=== PATIENT | male | born 1955 | race Caucasian/White ===

== ENCOUNTER 2024-06-11 06:23 | Day surgery (SDC) | payer MEDICARE, OTHER, SELFPAY ==
[2024-06-11] VITALS (15 sets, daily range): BP systolic 92–139; BP diastolic 55–75; BMI 24.1
[2024-06-11 08:30] LABS: ACT-LR - POC 208 Seconds (116-155)
[2024-06-11 08:38] LABS: ACT-LR - POC 269 Seconds (116-155)
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
[2024-06-11] MEDS: NSS 1000 IV (09:11)
[2024-06-11] MEDS: PLAVIX 300 MG PO (10:32)
== END 2024-06-11 13:15 | disposition home or self-care (01) ==
LOC: CATH 06:23
PROVIDERS: ATTENDING PHYSICIAN Internal Medicine Interventional Cardiology; OTHER PHYSICIAN Nuclear Medicine Nuclear Cardiology
DX: I25.10 Atherosclerotic heart disease of native coronary artery without angina pectoris (principal); I25.84 Coronary atherosclerosis due to calcified coronary lesion; R07.89 Other chest pain; R00.1 Bradycardia, unspecified; I95.9 Hypotension, unspecified; Z79.82 Long term (current) use of aspirin; Z79.02 Long term (current) use of antithrombotics/antiplatelets; Z79.899 Other long term (current) drug therapy
CPT/HCPCS: 93458; 93571; 93572; C1769; C1894; Q9967

== ENCOUNTER → 2024-06-16 14:48 | Outpatient (REF) | payer MEDICARE, OTHER, SELFPAY | LOC: HWRAD 14:48 | PROVIDERS: ATTENDING PHYSICIAN Thoracic Surgery (Cardiothoracic Vascular Surgery) | DX: I25.10 Atherosclerotic heart disease of native coronary artery without angina pectoris (principal) | CPT/HCPCS: 71250 ==

== ENCOUNTER → 2024-06-17 10:01 | Outpatient (REF) | payer MEDICARE, OTHER, SELFPAY | LOC: RCS 10:01 | PROVIDERS: ATTENDING PHYSICIAN Thoracic Surgery (Cardiothoracic Vascular Surgery); OTHER PHYSICIAN Nuclear Medicine Nuclear Cardiology | DX: Z01.810 Encounter for preprocedural cardiovascular examination (principal); I25.110 Atherosclerotic heart disease of native coronary artery with unstable angina pectoris | CPT/HCPCS: 93306 ==

== ENCOUNTER 2024-06-23 07:22 | Inpatient (IN) | payer MEDICARE, OTHER, SELFPAY ==
[2024-06-17 11:39] VITALS: BMI 23.9
[2024-06-17 12:21] LABS: Urine Albumin Negative (Neg - Trace); Urine Bilirubin Negative (Negative); Urine Character Clear (Clear); Urine Color Yellow; Urine Glucose Negative (Negative); Urine Ketone Negative (Negative); Urine Leukocyte Negative (Negative); Urine Nitrite Negative (Negative); Urine Occult Blood Negative (Negative); Urine Specific Gravity 1.015 (<1.030); Urine Urobilinogen Negative (Neg - 1+)
[2024-06-17 12:30] LABS: % Basophils 1.1 % (0-2); % Eosinophils 7.3 % (0-6); % Immature Granulocytes 0.3 % (0-0.5); % Lymphocytes 29.9 % (20.5-51.1); % Monocytes 9.1 % (1.7-9.3); % Neutrophils 52.3 % (42.2-75.2); Absolute Basophils 0.1 10^3/uL (0-0.2); Absolute Eosinophils 0.6 10^3/uL (0-0.7); Absolute Lymphocytes 2.2 10^3/uL (1.2-3.4); Absolute Monocytes 0.7 10^3/uL (0.1-0.6); Absolute Neutrophils 3.9 10^3/uL (1.4-6.5); Hematocrit 45.8 % (39.0-52.0); Hemoglobin 15.9 g/dL (13.0-18.0); Mean Corp Hgb Conc. 34.7 g/dL (33.0-37.0); Mean Corpuscular Hgb 29.8 pg (27.0-31.0); Mean Corpuscular Volume 85.8 fL (80.0-94.0); Mean Platelet Volume 10.5 fL (7.4-10.4); Nucleated Red Blood Cells % 0 % (-); Platelet Count 237 10^3/uL (130-400); Red Blood Cell Count 5.34 10^6/uL (4.70-6.10); Red Cell Dist. Width 12.3 % (11.5-14.5); White Blood Cell Count 7.5 10^3/uL (4.8-10.8)
[2024-06-17 12:32] LABS: APTT 31.1 Sec (23.4-35.0); INR 1.16; PT 14.9 Sec (11.4-14.6)
[2024-06-17 12:57] LABS: ALT (SGPT) 28 U/L (0-50); AST (SGOT) 28 U/L (17-59); Albumin 4.5 g/dl (3.5-5.0); Alkaline Phosphatase 64 U/L (38-126); Blood Urea Nitrogen 21 mg/dl (9-20); Calcium 9.4 mg/dl (8.4-10.2); Carbon Dioxide 32 mmol/L (22-30); Chloride 101 mmol/L (98-107); Direct Bilirubin 0.1 mg/dl (0.0-0.4); Estimated Creatinine Clearance 76 ml/min; Glucose 121 mg/dl (70-99); Potassium 4.7 mmol/L (3.5-5.1); Sodium 141 mmol/L (135-145); Total Bilirubin 1.1 mg/dl (0.2-1.3); eGFR > 60.00
[2024-06-17 13:52] LABS: Glycohemoglobin (HgbA1c) 5.5 % (4.0-5.6)
--- NOTE | 2024-06-17 14:23 | CM ---
CM following for DC planning needs.
Met w/ patient during PATs for planned CABG 06/23.
Patient resides w/ spouse in a private, 1 story home w/ 2 [place] in a [place] community. Pt. is very independent at baseline; mountain bikes regularly/ competes. Patient works full-time from home.
There is no DME in the home.
Reviewed pre and post op routines.
Soap, shower instructions and CABG booklet provided.
Reviewed post op restrictions to include lifting, driving, flying and sternal precautions.
Plan is CABG 06/23
Anticipated DC plan is for home once medically stable. [facility] RN is out of geographical area; patient wants to return to [place] office to remove sutures v have them removed here prior to DC. Will discuss w/ CT-PA/PARTS SALES MANAGER.
Will follow.
[2024-06-23] VITALS (10 sets, daily range): BP systolic 94–127; BP diastolic 58–93; BMI 23.4
[2024-06-23] MEDS: BACTROBAN 2% OINTMENT 1 APPLIC NASAL ×2 (08:02→19:51)
[2024-06-23] MEDS: PROTONIX 40 MG PO (08:02)
[2024-06-23] MEDS: MAGNESIUM OXIDE 500 MG PO (08:02)
--- NOTE | 2024-06-23 08:31 | PTCARENOTE ---
Pt arrived to room DOS with . VSS, HR 40's and CT [facility] notified, metoprolol to be held pre op. # 20 INT placed RT arm. ABO obtained and sent to lab. Surgical clip and prep preformed. Questions answered.
--- NOTE | 2024-06-23 09:16 | CM ---
Reviewed chart. Mr. Lazaro is in the operating room today. Prior to admission he resides with his spouse in a one story home with two steps to enter. Prior to admission he was independent with ambulation and adls. He does not have any DME in the
home. Medial work-up in progress. The discharge plan is to return home with his spouse when medically stable.
--- NOTE | 2024-06-23 12:14 | W.CVOR.SURPR ---
CVOR Surgeon Immed Pre Op
-
I have examined this patient prior to performance of the scheduled procedure.
The patient's condition is unchanged from the time of the dictated/written History and
Physical and the patient is able to undergo the scheduled procedure.
CABG + JAMES Clip and sternal fixation
--- NOTE | 2024-06-23 12:30 | PTCARENOTE ---
Pt transported to [facility] in bed, updated over phone.
[2024-06-23 12:58] LABS: ACT+ - POC 98 Seconds (82-134)
[2024-06-23 14:39] LABS: Urine Albumin Negative (Neg - Trace); Urine Bilirubin Negative (Negative); Urine Character Clear (Clear); Urine Color Yellow; Urine Glucose Negative (Negative); Urine Ketone Trace (Negative); Urine Leukocyte Negative (Negative); Urine Nitrite Negative (Negative); Urine Occult Blood Negative (Negative); Urine Urobilinogen Negative (Neg - 1+)
[2024-06-23 15:18] LABS: B.E. - POC -0.5 mmol/L; Glucose - POC 92 mg/dl (70-99); HCO3 - POC 24 mmol/L (21-29); Hematocrit - POC 42 % PCV (42-52); Hemodilution- POC Yes; Hemoglobin Calculated - POC 14.2; Ionized Calcium - POC 1.18 mmol/L (1.12-1.27); PCO2 - POC 39 mmHg (35-45); PO2 - POC 442 mmHg (80-100); POC Comment PRE; Sodium - POC 143 mmol/L (135-145)
[2024-06-23 15:28] LABS: ACT+ - POC > 1003 Seconds (82-134)
[2024-06-23 15:46] LABS: ACT+ - POC > 1003 Seconds (82-134)
[2024-06-23 15:49] LABS: B.E. - POC 3.1 mmol/L; Glucose - POC 108 mg/dl (70-99); HCO3 - POC 28 mmol/L (21-29); Hematocrit - POC 31 % PCV (42-52); Hemodilution- POC Yes; Hemoglobin Calculated - POC 10.5; Ionized Calcium - POC 0.99 mmol/L (1.12-1.27); O2 Saturation %Calculated-POC 99.9 5 (92-96); PCO2 - POC 44 mmHg (35-45); PO2 - POC 263 mmHg (80-100); POC Comment CPB; Potassium - POC 4.9 mmol/L (3.6-5.0); Sodium - POC 139 mmol/L (135-145); pH - POC 7.42 (7.35-7.45)
[2024-06-23 16:16] LABS: B.E. - POC 1.5 mmol/L; Glucose - POC 129 mg/dl (70-99); HCO3 - POC 26 mmol/L (21-29); Hematocrit - POC 34 % PCV (42-52); Hemodilution- POC Yes; Hemoglobin Calculated - POC 11.4; Ionized Calcium - POC 1.01 mmol/L (1.12-1.27); PCO2 - POC 38 mmHg (35-45); PO2 - POC 129 mmHg (80-100); POC Comment CPB; Potassium - POC 5.2 mmol/L (3.6-5.0); Sodium - POC 138 mmol/L (135-145); pH - POC 7.43 (7.35-7.45)
[2024-06-23 16:28] LABS: Glucose - POC 139 mg/dl (70-99); HCO3 - POC 26 mmol/L (21-29); Hematocrit - POC 34 % PCV (42-52); Hemodilution- POC Yes; Hemoglobin Calculated - POC 11.5; Ionized Calcium - POC 1.04 mmol/L (1.12-1.27); O2 Saturation %Calculated-POC 99.5 5 (92-96); PCO2 - POC 44 mmHg (35-45); PO2 - POC 167 mmHg (80-100); POC Comment CPB; Potassium - POC 5.2 mmol/L (3.6-5.0); Sodium - POC 138 mmol/L (135-145); pH - POC 7.37 (7.35-7.45)
[2024-06-23 16:47] LABS: B.E. - POC -1.5 mmol/L; Glucose - POC 129 mg/dl (70-99); HCO3 - POC 24 mmol/L (21-29); Hematocrit - POC 34 % PCV (42-52); Hemodilution- POC Yes; Hemoglobin Calculated - POC 11.6; Ionized Calcium - POC 1.02 mmol/L (1.12-1.27); O2 Saturation %Calculated-POC 99.9 5 (92-96); PCO2 - POC 40 mmHg (35-45); PO2 - POC 311 mmHg (80-100); POC Comment WARM; Potassium - POC 4.8 mmol/L (3.6-5.0); Sodium - POC 141 mmol/L (135-145); pH - POC 7.38 (7.35-7.45)
[2024-06-23 16:52] LABS: ACT+ - POC 118 Seconds (82-134)
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
--- NOTE | 2024-06-23 17:46 | CON.INTV ---
Consultation
Consultation Request
Date/Time Consultation Requested: 06/23
Date/Time Consultation Performed: 06/23
Reason for Consultation: Critical care
Medical History
-
History of Present Illness:
History obtained from the chart and reviewing outpatient records as patient is currently intubated/sedated. Patient is a 69-year-old male with history of recent non-ST elevation SC, requiring hospitalization May 2024. Was found to have
multivessel coronary disease per catheterization 06/11/2024. Patient was noted to have left main disease and for this reason underwent CABG 06/23. We are asked to help from a medical care standpoint.
Patient has been ordered platelets. Chest tube output minimal. Intermittent norepinephrine requirements noted. Currently on volume-cycled ventilation, adequate airway pressures
Postoperative EKG with incomplete right bundle branch.
.
PMH: Coronary disease multivessel status post non-ST elevation SC 06/05/2024. Hyperlipidemia. History of right collar bone surgery 2022, right ankle fracture
Past Medical History
Past Medical History: None (See above)
Past Surgical History: None (See above)
Social History
Tobacco: Non-smoker
Alcohol: None
Drug: None
Personal:
Living: With Family
Employment: Employed (Owns [employer])
Family History
Family History: Other (Father alive at 93, mother alive at 86. Father with coronary disease and bypass surgery. Brother with cardiomegaly, pacemaker.)
Allergies / Home Medications
Allergies
Allergy/AdvReac Type Severity Reaction Status Date / Time
No Known Allergies Allergy Verified 06/17/24 08:56
Home Medications
�Medication �Instructions �Recorded �Confirmed �Last Taken �Type
aspirin 81 mg chewable tablet 81 mg PO DAILY Blood Clot 06/11/24 06/23/24 06/22/24 08:00 History
Prevention/Tx
atorvastatin 80 mg tablet 80 mg PO HS High Cholesterol 06/11/24 06/23/24 06/21/24 20:00 History
metoprolol tartrate 25 mg tablet 25 mg PO BID Heart 06/11/24 06/23/24 06/22/24 20:00 History
Disease/Condition
nitroglycerin 0.4 mg sublingual 0.4 mg sublingual Q5M PRN chest 06/11/24 06/17/24 Unknown History
tablet pain
clopidogrel 75 mg tablet 75 mg PO NOON Blood Clot 06/17/24 06/23/24 06/17/24 12:00 History
Prevention/Tx
Review of Systems
-
Unable to Obtain full review of systems at this time due to: Patient Intubation
All other systems: Negative unless noted
Vitals / Labs / Diagnostic Testing
Vital Signs
Temp Pulse Resp Pulse Ox
98.0 F 44 18 100
06/23/24 07:48 06/23/24 08:03 06/23/24 07:48 06/23/24 07:48
Diagnostic Testing:
Physical Exam
-
HEENT: Normocephalic, Other (Bilateral lower extremity bandage, right IJ, left upper extremity) and Other (Chest incision intact)
Cardiovascular: S1/S2, Regular Rhythm and Murmur (n)
Respiratory: Wheeze (n), Rales (n), Rhonchi (n) and Non-Labored Respirations
GI: Soft and Non Distended
Neurology: Other (Sedated)
Skin: Good Color
General: Comfortable
Assessment
-
69-year-old male with history of coronary disease status post non-ST elevation SC 06/05/2024, with cardiac catheterization at that time revealing multivessel coronary disease and left main disease. Patient is status post bypass surgery 06/23/2024. We
are asked to help from critical care standpoint
S/p CABG 06/23/2024
Multivessel coronary disease, left main disease
Per C 06/11/2024
S/p NSTEMI 06/05/2024
Family history of heart disease
Hyperlipidemia
Right lower lobe pulmonary nodule, 5 mm
7.5 cm left kidney cyst
Plan/recommendations
At this time, patient remains critically ill but stable
Reviewed postoperative report
Chest tubes intact, no significant bleeding
Postoperative chest x-ray pending
Postoperative EKG incomplete right bundle branch
Intraoperative PUJA unremarkable. Preoperative echocardiogram normal
Moving forward
Continue with management per CT surgery
Anticipate extubation later today. Patient in excellent health, bikes 100 miles a week per report, does weights
Pressors as needed
Hemodynamic monitoring per CT surgery
Follow hemoglobin, follow blood sugars
Patient ordered platelets per CT surgery
Aspiration precautions, head of bed elevated once extubated
History of pulm nodule noted, [address] imaging right lower lobe
Consider follow-up CT chest in 1 year, depending on risk factors
Reviewed with critical care nursing
We will follow
TCCT 31 min
[2024-06-23 18:03] LABS: Glucose - Point of Care 84 mg/dl (70-99)
--- NOTE | 2024-06-23 18:06 | W.PN.UPDATE ---
Update Note
Progress Note Update
69y.o. male with NSTEMI 06/13/24 and left main/3VCAD was electively admitted 06/23 for CABG
IV fluids: 1200
U.O.:� 400
UF:� 1500
Blood:� 2 platelets
Wires:� bipolar V-wire
Gtts:� Levo @ 4, Insulin off, Precedex @ 0.6
�
NEURO: sedated on Precedex, pupils +2mm B/L
RESP: #8OT @23cm> 500/60%/14/5. Lungs clear B/L. 2 mediastinal (10cc on arrival) and L pleural (48cc on arrival) chest tubes to -20cm suction. Sanguineous drainage
CV: RRR +S1, S2, no S3, no�rub, no murmur. Dermabond to median sternotomy. RIJ w/[place] intact. CVP 3
ABD: round, soft, no BS
EXT: no edema, +2/4 DP pulses B/L, no femoral bruit, B/L LE TATIANA wrap intact; left radial A-line intact
: Connors with clear yellow urine
�
A/P: POD #0 s/p x 4 (GLOVER to LAD, SVG to diagonal & OM 3, SVG to RPDA); Left atrial appendage exclusion [#45 mm clip]. Rigid sternal fixation
PUJA: EF�55-60%
- wean and extubate
- platelets transfusing on admission to CVICU
# CAD
- will require resumption of ASA/Plavix, high intensity statin, beta radha
�
# acute surgical blood loss anemia-expected
- trend CBC
�
�
[2024-06-23 18:11] LABS: B.E. -0.5 mmol/L; HCO3 24.2 mmol/L (21-28); O2 Saturation % 99.7 % (94-98); PCO2 39 mmHg (35-48); PO2 327 mmHg (83-108); Potassium 3.4 mMOL/L (3.5-5.1); Sodium 138 mMOL/L (136-145)
[2024-06-23 18:20] LABS: APTT 32.7 Sec (23.4-35.0); Hemoglobin 12.8 g/dL (13.0-18.0); INR 1.65; PT 19.6 Sec (11.4-14.6); Platelet Count 187 10^3/uL (130-400)
[2024-06-23] MEDS: CALCIUM CHLORIDE 10% SYRINGE 50 MG IV (18:20)
[2024-06-23] MEDS: KCL 50 IV (18:20)
[2024-06-23] MEDS: CALCIUM CHLORIDE 10% SYRINGE 50 ML IV (18:20)
[2024-06-23] MEDS: ANCEF 10 IV ×2 (18:21)
[2024-06-23] MEDS: NEURONTIN PO ×2 (18:23→23:47)
[2024-06-23] MEDS: NSS 500 IV (18:23)
[2024-06-23 18:24] LABS: Blood Urea Nitrogen 20 mg/dl (9-20); Estimated Creatinine Clearance 95 ml/min; Glucose 85 mg/dl (70-99)
--- NOTE | 2024-06-23 18:24 | PTCARENOTE ---
Patient received from [facility]. PLTs infusing upon arrival, insulin gtt on standby from OR and repeat BG 84. Patient Patient NSR on monitor, epicardial wires on backup pacing VVI 30, heart tones regular, L radial josie transducing, leveled, recalibrated
and flushed. Patient on ventilator via anesthesia, satting 99% on 60% FiO2. CT x3 to -20 suction, no air leaks or crepitus appreciated. Hypoactive BS, mobley catheter in place draining clear yellow urine. Surgical sites CDI, allie wraps on B/L legs.
Pulses palpable, core temp 94.9-95.1, Jasvir hugger applied. Drips on arrival as follows: levophed and precedex. See work list for titration details.
[2024-06-23] MEDS: VERSED 0.5 MG IV (18:47)
[2024-06-23 19:00] LABS: Glucose - Point of Care 106 mg/dl (70-99)
[2024-06-23] MEDS: TYLENOL PO ×2 (19:07→23:47)
[2024-06-23] MEDS: DILAUDID 0.5 MG IV ×2 (19:10→22:35)
[2024-06-23] MEDS: SENOKOT-S PO (19:51)
[2024-06-23 20:00] LABS: Glucose - Point of Care 138 mg/dl (70-99)
--- NOTE | 2024-06-23 20:30 | PTCARENOTE ---
Patient received Intubated/Ventilator. #8.0 ETT 25cm Right lip. SIMV Settings - Rate 12 TV 550 PS 5 PEEP 5 FiO2 40%. FiO2 98%. Patient opens eyes to verbal commands. Pupils equal in size and reaction. Patient able to nod head appropriately
to simple verbal commands. Patient able to move all extremities without difficulty. No s/s of respiratory distress. Three chest tubes - Mediastinal x2 and Left Pleural - Intact and patent - 10-40ml red drainage - No air leak, tidaling or crepitus
noted. Chest tube dressing intact. Sinus Rhythm. Heart rate 80's. CVP 10. Left radial arterial line intact - Pressure bag/Saline flush. Right I.J. Cordis with [place] catheter. Levophed gtt at 2 mcq/min (7.5 ml/hr). Precedex gtt at 0.4
mcq/kg/min (7.5 ml/hr). Abdomen soft, nontender. Hypoactive bowel sounds in all four quads. No BM. No c/o nausea. No vomiting. Connors catheter - Temperature sensing - Yellow, clear urine - Output as documented. Jasvir hugger removed. 98.0 F
core temperature. IV Dilaudid for pain management. Sternal incision intact - Surgical adhesive - Open to air. Right groin dressing intact. Right leg incision intact - Surgical adhesive - [place] Wrap. Left leg incision intact - Surgical
adhesive - [place] Wrap. Positive, palpable pulses. Patient with no c/o back or flank pain. Assessment as documented.
[2024-06-23 21:19] LABS: Glucose - Point of Care 132 mg/dl (70-99)
[2024-06-23] MEDS: CALCIUM CHLORIDE 10% SYRINGE 60 MG IV (21:20)
[2024-06-23 22:07] LABS: HCO3 19.6 mmol/L (21-28); Ionized Calcium 1.33 mMOL/L (1.15-1.33); PCO2 31 mmHg (35-48); PO2 124 mmHg (83-108); Potassium 4.6 mMOL/L (3.5-5.1); pH 7.41 (7.35-7.45)
[2024-06-23 22:12] LABS: Hematocrit 37.3 % (39.0-52.0); Hemoglobin 13.6 g/dL (13.0-18.0); Platelet Count 290 10^3/uL (130-400)
[2024-06-23] MEDS: LR 250 ML IV (22:30)
[2024-06-23] MEDS: ZOFRAN 4 MG IV (22:49)
[2024-06-23] MEDS: SODIUM BICARBONATE 50 MEQ IV (23:00)
--- NOTE | 2024-06-23 23:00 | PTCARENOTE ---
CPAP wean. ABG and labs sent. Extubated at 2225 without difficulty. O2 at 6L via NC. SaO2 97%. Patient A+A+Ox3. No neurological deficits noted. Patient able to speak without difficulty. Voice quality clear. Calcium chloride 1,000mg/60ml IV
administered via Right I.J. Cordis per PA orders (Brock Garber PA-C). IV Dilaudid 0.5 mg IV given for pain management. Zofran 4mg IV given for c/o nausea. No vomiting or retching. Nausea resolved. 1 AMP Sodium Bicarb administered without
difficulty per PA order. LR bolus 250mg IV given. Patient tolerated a few ice chips. Assessment as documented.
[2024-06-23 23:18] LABS: Glucose - Point of Care 175 mg/dl (70-99)
[2024-06-23] MEDS: DILAUDID 0.25 MG IV (23:53)
[2024-06-24] VITALS (25 sets, daily range): BP systolic 80–124; BP diastolic 51–73; BMI 23.6
[2024-06-24] MEDS: LOW STRENGTH ASPIRIN 81 MG PO ×2 (00:03→11:02)
[2024-06-24] MEDS: LIPITOR 80 MG PO ×2 (00:03→21:36)
[2024-06-24 00:24] LABS: Glucose - Point of Care 154 mg/dl (70-99)
--- NOTE | 2024-06-24 00:30 | PTCARENOTE ---
Patient's blood glucose via accuchecks are greater than 140 mg/dL one hour apart - Glycemic Protocol started. No further changes from previous assessment.
[2024-06-24] MEDS: ANCEF 5 IV ×3 (00:54→15:50)
[2024-06-24] MEDS: NOVOLIN R INSULIN INFUSION 100 IV (01:04)
--- NOTE | 2024-06-24 01:04 | W.PN.CT ---
Today's Communication / Plan
-
Plan:
-No major issues overnight. Hemodynamically and neurologically intact
-Successfully extubated on 06/23/24 @ 2225
-Weaned off Levophed overnight, on insulin gtt per protocol
-U/O since OR 1375 mL
-Monitor chest tube output: 2med 160/250, Lpl 170/190
-Cont. current meds (ASA, Lipitor; will add Plavix; Amiodarone and Lopressor were held last night)
-D/C A-line/SLIC this AM @ 0445
-D/C Connors catheter @ 0600
-Transfer to [facility] phase when off insulin gtt
-K is 3.8, will replete
-Maintain cordis
-Maintain temporary pw (will pull in 1-2 days)
-Wean off of O2 as tolerated
-Encourage use of IS
-OOB into chair/Ambulate
Assessment / Plan
-
Assessment:
-S/p Standard sternotomy with aortic and right atrial cannulation/ CABG x 4 (In situ GLOVER to LAD, Ao to RSVG to diagonal sequential to OM 3, Ao to RSVG to RPDA)/Endoscopic vein harvesting of right lower extremity and additional exploration for vein
of the left lower extremity/Left atrial appendage exclusion [45 mm clip]/Rigid sternal fixation, by Dr. Cortés, 06/23/24, pod#1
-Multivessel CAD including 50% mid LM
-NSTEMI (0.196)
-USA
-LVEF 60-65% per intraop PUJA
-Trace to mild MR
-Hyperlipidemia
-Sinus bradycardia at baseline (45 bpm)
-Incomplete RBBB
-Hypotension at baseline
-Chronic back pain
-Chronic neck pain
-History of significant chest trauma with multiple fractured ribs on the right side and collarbone
-S/p R collar bone reconstruction
-S/P R ankle repair
-Acute postop blood loss/Anemia (stable without transfusion)
-Acute postop atelectasis
-Acute postop hypovolemia with subsequent hypervolemia
Discussed patient care with: Cardiology, Nursing, Respiratory Therapy, Pharmacy and Care Team
Subjective
Procedure
S/P Standard sternotomy with aortic and right atrial cannulation/ CABG x 4 (In situ GLOVER to LAD, Ao to RSVG to diagonal sequential to OM 3, Ao to RSVG to RPDA)/Endoscopic vein harvesting of right lower extremity and additional exploration for vein
of the left lower extremity/Left atrial appendage exclusion [45 mm clip]/Rigid sternal fixation, by Dr. Cortés, 06/23/24
-
Date of Service: June 24, 2024
Pt c/o incisional pain, had nausea and vomited last night, better this AM after Reglan
Objective Data
-
PT 19.6 Sec (11.4-14.6) H 06/23/24 18:01
INR 1.65 06/23/24 18:01
APTT 32.7 Sec (23.4-35.0) 06/23/24 18:01
Vital Signs
Vital Signs
Temp Pulse Resp BP Pulse Ox
97.0 F 96 17 115/69 100
06/24/24 00:15 06/24/24 00:15 06/24/24 00:15 06/24/24 00:15 06/24/24 00:15
CT Intake/Output/Weight
06/23/24 06/23/24 06/24/24
06:59 18:59 06:59
Intake Total 716.4 / 1182.5 466.1 / 1182.5
Output Total 615 / 1410 795 / 1410
Balance 101.4 / -227.5 -328.9 / -227.5
SaO2: 98 (RA)
Physical Exam
-
General: Awake, Oriented and AOx3
Cardiovascular: Regular rate & rhythm, No Murmurs, No Rub and No Gallop
Respiratory: Decreased Breath Sounds (at bases, otherwise clear)
Sternum: Stable
Incision: Clean, Dry, Intact and Dressing Intact
Extremities: No Edema
Data Reviewed
-
Lab Results: Results Reviewed
Medications: Active Meds Reviewed
Chest X-Ray: Report Reviewed and Image Reviewed
ECG: Report Reviewed and Image Reviewed
[2024-06-24 01:14] LABS: Glucose - Point of Care 167 mg/dl (70-99)
[2024-06-24] MEDS: REGLAN 10 MG IV ×2 (02:00→07:54)
[2024-06-24 02:12] LABS: Glucose - Point of Care 205 mg/dl (70-99)
[2024-06-24 03:20] LABS: Glucose - Point of Care 189 mg/dl (70-99)
[2024-06-24 03:39] LABS: Hemoglobin 11.8 g/dL (13.0-18.0); Mean Corp Hgb Conc. 36.9 g/dL (33.0-37.0); Mean Corpuscular Hgb 29.9 pg (27.0-31.0); Mean Platelet Volume 10.1 fL (7.4-10.4); Platelet Count 244 10^3/uL (130-400); Red Blood Cell Count 3.95 10^6/uL (4.70-6.10); Red Cell Dist. Width 12.1 % (11.5-14.5); White Blood Cell Count 17.7 10^3/uL (4.8-10.8)
[2024-06-24 03:50] LABS: INR 1.43; PT 17.5 Sec (11.4-14.6)
[2024-06-24 04:01] LABS: Glucose - Point of Care 184 mg/dl (70-99)
[2024-06-24 04:02] LABS: Blood Urea Nitrogen 26 mg/dl (9-20); Calcium 8.9 mg/dl (8.4-10.2); Carbon Dioxide 23 mmol/L (22-30); Chloride 108 mmol/L (98-107); Estimated Creatinine Clearance 85 ml/min; Glucose 193 mg/dl (70-99); Magnesium 2.1 mg/dl (1.6-2.3); Potassium 3.8 mmol/L (3.5-5.1); Sodium 143 mmol/L (135-145); eGFR > 60.00
[2024-06-24 05:05] LABS: Glucose - Point of Care 170 mg/dl (70-99)
[2024-06-24] MEDS: KCL 50 IV (06:00)
[2024-06-24] MEDS: TYLENOL PO ×5 (06:00→21:39)
[2024-06-24 06:16] LABS: Glucose - Point of Care 147 mg/dl (70-99)
--- NOTE | 2024-06-24 06:30 | PTCARENOTE ---
Patient A+A+Ox3. No neurological deficits noted. Occasional short episodes of nausea. No vomiting. Patient given CHG bath and linens changed. K 3.8. KCL 20 mEq IV over 1hr. Patient de-lined. Connors removed without difficulty at 0600 - Due to
void at 12pm. Assessment/Interventions as documented.
[2024-06-24] MEDS: ZOFRAN 4 MG IV (07:17)
--- NOTE | 2024-06-24 07:26 | W.PN.ANS.POP ---
Anesthesia Post Operative
- Anesthesia Post Op Note
Vital Signs Stable-See Nursing Note: Yes
Airway Patent: Yes
Adequate Pain Control: Yes
Change in Mental Status: No
Current Postoperative Nausea & Vomiting: Yes (pt receiving zofran)
Anesthesia Complications: No
General Anesthetic Recall: No
Unplanned Admission: No
Post Op Hydration Adequate: Yes
[2024-06-24 07:37] LABS: Glucose - Point of Care 128 mg/dl (70-99)
[2024-06-24 07:40] LABS: B.E. - POC -2.7 mmol/L; Glucose - POC 100 mg/dl (70-99); HCO3 - POC 23 mmol/L (21-29); Hematocrit - POC 33 % PCV (42-52); Hemodilution- POC Yes; Hemoglobin Calculated - POC 11.4; Ionized Calcium - POC 1.32 mmol/L (1.12-1.27); O2 Saturation %Calculated-POC 99.4 5 (92-96); PCO2 - POC 41 mmHg (35-45); PO2 - POC 168 mmHg (80-100); POC Comment POST; Potassium - POC 3.7 mmol/L (3.6-5.0); Sodium - POC 142 mmol/L (135-145); pH - POC 7.35 (7.35-7.45)
--- NOTE | 2024-06-24 07:57 | W.PN.INTV ---
Today's Communication / Plan
Recommendations
Chest tube management per CT surgery
Status post platelet transfusion, hemoglobin stable
Remains on insulin drip
Would recommend follow-up CT chest in 1 year for pulmonary nodule, May 2025
Pulmonary information left in chart
Once transferred to telemetry, we will sign off. Please call with questions
Assessment
-
69-year-old male with history of coronary disease status post non-ST elevation [place] 06/05/2024, with cardiac catheterization at that time revealing multivessel coronary disease and left main disease. Patient is status post bypass surgery 06/23/2024. We
are asked to help from critical care standpoint
S/p CABG 06/23/2024
Multivessel coronary disease, left main disease
Per C 06/11/2024
S/p NSTEMI 06/05/2024
Family history of heart disease
Hyperlipidemia
Right lower lobe pulmonary nodule, 5 mm
7.5 cm left kidney cyst
Plan/recommendations
At this time, patient remains critically ill but stable
Reviewed postoperative report
Chest tubes intact, no significant bleeding
Postoperative chest x-ray pending
Postoperative EKG incomplete right bundle branch
Intraoperative PUJA unremarkable. Preoperative echocardiogram normal
Moving forward
Continue with management per CT surgery
Pressors have been weaned off
Remains on insulin drip
Follow hemoglobin, follow blood sugars
Received 2 packs of platelets
History of pulm nodule noted, [address] imaging right lower lobe
I would consider follow-up CT chest in 1 year, depending on risk factors
Subjective Dataa
Subjective Data
Date of Service:
Date of Service: June 24, 2024
Subjective:
Patient is feeling well. Denies chest pain, shortness of breath. Mild nausea, now resolved
Objective Data
Data Reviewed
Vital Signs / I&O / Oxygen:
Vital Signs
Temp Pulse Resp BP Pulse Ox
97.7 F 75 22 103/72 97
06/24/24 04:00 06/24/24 07:30 06/24/24 05:45 06/24/24 06:10 06/24/24 07:00
Intake and Output
06/23/24 06/24/24 06/25/24
06:59 06:59 06:59
Intake Total 1574.5 / 1574.5
Output Total 1909
Balance -335.5 / -335.5
SaO2 [CPAP] 96
SaO2 [SIMV] 98
SaO2 97
Nasal Cannula flow liters per 2
minute
Physical Exam
General: Comfortable
HEENT: Normocephalic and Anicteric
Cardiovascular: S1-S2, Regular Rhythm and Murmur (n)
Respiratory: Wheeze (n), Crackles (n), Rhonchi (n) and Non-Labored Respirations
GI: Soft, Non Distended and Non Tender
Neurology: Awake, Alert and No Motor Deficits
Skin: Cyanosis (n), Jaundice (n) and Rash (n)
Labs/Micro/Reports
Lab Data
06/24/24 03:28
06/24/24 03:28
Laboratory Results
06/23/24 06/23/24 06/24/24
18:01 21:57 03:28
PT 19.6 H 17.5 H
INR 1.65 1.43
APTT 32.7
pH 7.40 7.41
pCO2 39 31 L
pO2 327 H 124 H
HCO3 24.2 19.6 L
O2 Delivery Level
[2024-06-24] MEDS: TORADOL 15 MG IV ×2 (08:10→13:55)
[2024-06-24] MEDS: LIDOCAINE 4% PATCH 1 PATCH TOPICAL ×2 (08:11→17:13)
[2024-06-24] MEDS: FEOSOL PO ×2 (08:14→09:57)
[2024-06-24] MEDS: PROTONIX PO (08:14)
[2024-06-24] MEDS: LOW STRENGTH ASPIRIN PO (08:15)
[2024-06-24] MEDS: NEURONTIN PO ×2 (08:15→09:56)
[2024-06-24] MEDS: LOPRESSOR PO (08:15)
[2024-06-24] MEDS: VITAMIN C PO ×2 (08:15→09:58)
[2024-06-24] MEDS: SENOKOT-S PO ×2 (08:15→09:56)
[2024-06-24] MEDS: PLAVIX PO (08:15)
[2024-06-24] MEDS: BACTROBAN 2% OINTMENT 1 APPLIC NASAL ×2 (08:17→19:23)
[2024-06-24 08:41] LABS: ACT+ - POC > 1003 Seconds (82-134)
[2024-06-24 08:41] LABS: ACT+ - POC > 1003 Seconds (82-134)
[2024-06-24] MEDS: COMPAZINE 5 MG IV (09:30)
[2024-06-24] MEDS: NSS IV (09:55)
[2024-06-24 10:13] LABS: Glucose - Point of Care 112 mg/dl (70-99)
--- NOTE | 2024-06-24 10:39 | PTCARENOTE ---
Patient received from environmental services project manager in bed, AAO X 3, c/o pain and nausea, medicated for such (see MAR). NSR via cm, SaO2 @ 97% on 2lnc. RIJ Cordis w/kvo infusing. Insulin infusing peripherally, titrating per glycemic protocol. Epicardial V-wire to
pulse generator, insulated as ordered. Mediastinal chest tubes x 2, Y-connected to one pleurevac, no air leak noted. L pleural chest tube to separate chamber, d/c'd as ordered, patient tolerated well. All procedural sites stable. Patient assisted
oob to chair, standing scale weight obtained. OOB for approx one hour, requested to be returned to bed. Patient educated on importance of remaining oob - will return to bed for brief nap. See work list for full assessment and interventions
performed.
[2024-06-24] MEDS: FLEXERIL 5 MG PO ×2 (11:01→19:21)
[2024-06-24 12:05] LABS: Glucose - Point of Care 136 mg/dl (70-99)
[2024-06-24] MEDS: LOPRESSOR 12.5 MG PO ×2 (12:07→19:21)
[2024-06-24] MEDS: PLAVIX 75 MG PO (12:07)
[2024-06-24] MEDS: PROTONIX 40 MG PO (12:07)
--- NOTE | 2024-06-24 12:13 | W.PN.CARDCBS ---
Addendum entered and electronically signed by Robert Josue MD 06/24/24 13:04:
I saw and examined the patient.
The Stucco Laborer's note was reviewed and I agree with the note.
Comment:
GEN: No distress, awake, Ox3
HEENT: supple, anicteric, mmm
LUNGS: CTA, no wheezes/rales
CV: Reg, S1/S2, no murmur
ABD: soft, BS+, NT/ND
EXT: No edema
NEURO: Gross non-focal
SKIN: sternotomy
Plan:
Overall doing well postop day 1. Off all pressors. Remains in sinus rhythm.
Hemoglobin at 11.8. Creatinine at 0.9.
Continue treatments for nausea.
Original Note:
Today's Communication / Plan
-
continue post op care
continue antiemetic regimen
Impression / Plan
-
Primary Reel Film Inspector: Dr. Josue
Assessment:
MV CAD s/p CABG x4 In situ GLOVER to LAD, Ao to RSVG to diagonal sequential to OM 3, Ao to RSVG to RPDA, JAMES clip, rigid sternal fixation 06/23/24
Post operative nausea
NSTEMI 06/05/24, initially treated at [facility]
HLD
Sinus bradycardia
Incomplete RBBB
Chronic back and neck pain
History of significant chest trauma with multiple fractured ribs on the right side and collarbone
FH of CAD
Echo 06/17/2024: EF 60 to 65%, no significant valvular abnormalities
Plan:
-Status post CABG x 4 In situ GLOVER to LAD, Ao to RSVG to diagonal sequential to OM 3, Ao to RSVG to RPDA, JAMES clip, rigid sternal fixation 06/23/24
-With significant postoperative nausea and fatigue this morning
-Continue postop care
-off pressors. BPs low but stable
-EKG SR
-continue asa, plavix. hgb 11.8
-d/w nursing
Progress Note - Reel Film Inspector
Subjective
Date of Service: June 24, 2024
with significant nausea and fatigue this morning
Objective
Labs:
06/24/24 03:28
06/24/24 03:28
Labs
Hgb 11.8 g/dL (13.0-18.0) L 06/24/24 03:28
Hct 32.0 % (39.0-52.0) L 06/24/24 03:28
Plt Count 244 10^3/uL (130-400) 06/24/24 03:28
PT 17.5 Sec (11.4-14.6) H 06/24/24 03:28
INR 1.43 06/24/24 03:28
APTT 32.7 Sec (23.4-35.0) 06/23/24 18:01
Sodium 143 mmol/L (135-145) 06/24/24 03:28
Potassium 3.8 mmol/L (3.5-5.1) 06/24/24 03:28
BUN 26 mg/dl (9-20) H 06/24/24 03:28
Creatinine 0.9 mg/dL (0.7-1.3) 06/24/24 03:28
Glucose 193 mg/dl (70-99) H 06/24/24 03:28
Vital Signs and I&O:
Vital Signs
Temp Pulse Resp BP Pulse Ox
97.9 F 76 16 102/57 95
06/24/24 12:10 06/24/24 12:10 06/24/24 12:10 06/24/24 12:07 06/24/24 12:10
Vital Signs
Temp Pulse Resp BP Pulse Ox
97.9 F 76 16 102/57 95
06/24/24 12:10 06/24/24 12:10 06/24/24 12:10 06/24/24 12:07 06/24/24 12:10
Intake & Output
06/22/24 06/23/24 06/24/24 06/25/24
07:59 07:59 07:59 07:59
Intake Total 1589.0 / 1603.0 41.5 / 41.5
Output Total 1929 / 1929 40 / 40
Balance -341.0 / -327.0 1.5 / 1.5
--- NOTE | 2024-06-24 13:41 | PTCARENOTE ---
VS, assessment unchanged, stable. Assisted oob for lunch, tolerated well. Voided to urinal w/out issue.
[2024-06-24] MEDS: FERRLECIT 110 MG IV (13:55)
[2024-06-24 14:00] LABS: Glucose - Point of Care 117 mg/dl (70-99)
[2024-06-24 15:50] LABS: Glucose - Point of Care 77 mg/dl (70-99)
[2024-06-24] MEDS: NEURONTIN 100 MG PO ×2 (15:50→21:37)
--- NOTE | 2024-06-24 16:09 | PTCARENOTE ---
VS obtained, assessment stable. Patient resting comfortably, pain much better controlled this afternoon. Nausea resolved.
[2024-06-24 17:18] LABS: Glucose - Point of Care 105 mg/dl (70-99)
[2024-06-24 18:24] LABS: Glucose - Point of Care 159 mg/dl (70-99)
[2024-06-24] MEDS: SENOKOT-S 1 TABLET PO (19:22)
--- NOTE | 2024-06-24 20:00 | PTCARENOTE ---
Received pt from [facility]. pt sitting comfortably in bed. pt is AAOx4. NSR on monitor. VSS. heart sounds audible, radial and DP pulses palpable, no edema noted, temp epicardial V-wires insulated. lung sounds diminished throughout, spo2 95% on RA, x2
MS CT to -20 wall suction, no air leaks, no tidaling no crepitus. hypoactive BS x4 quadrants, abdomen soft non tender, pt refused Senokot, education provided on importance of bowel regime post-op. pt voiding clear yellow urine without difficulty.
surgical sites maintained. right IJ cordis and PIV maintained. call soliman within reach. will continue to monitor.
[2024-06-25] VITALS (21 sets, daily range): BP systolic 79–129; BP diastolic 48–68; BMI 24.5; BMI 24.4
--- NOTE | 2024-06-25 | PTCARENOTE ---
Pt resting comfortably in be. BP is treading down, MAP remains > 65. CVPA aware. pt resting comfortably in be. NSR on monitor. VSS. call soliman within reach. will continue to monitor.
--- NOTE | 2024-06-25 04:00 | PTCARENOTE ---
pt assessment unchanged. NSR on monitor.VSS. call soliman within reach. will continue to monitor.
[2024-06-25 04:31] LABS: Hematocrit 27.1 % (39.0-52.0); Hemoglobin 9.8 g/dL (13.0-18.0); Mean Corp Hgb Conc. 36.2 g/dL (33.0-37.0); Mean Corpuscular Hgb 30.1 pg (27.0-31.0); Mean Corpuscular Volume 83.1 fL (80.0-94.0); Mean Platelet Volume 10.5 fL (7.4-10.4); Platelet Count 178 10^3/uL (130-400); Red Blood Cell Count 3.26 10^6/uL (4.70-6.10); Red Cell Dist. Width 12.6 % (11.5-14.5); White Blood Cell Count 17.2 10^3/uL (4.8-10.8)
[2024-06-25 04:48] LABS: Blood Urea Nitrogen 37 mg/dl (9-20); Calcium 8.4 mg/dl (8.4-10.2); Carbon Dioxide 27 mmol/L (22-30); Chloride 101 mmol/L (98-107); Estimated Creatinine Clearance 69 ml/min; Glucose 131 mg/dl (70-99); Magnesium 2.3 mg/dl (1.6-2.3); Potassium 4.7 mmol/L (3.5-5.1); Sodium 135 mmol/L (135-145); eGFR > 60.00
[2024-06-25] MEDS: TORADOL 15 MG IV ×2 (04:49→22:04)
--- NOTE | 2024-06-25 05:50 | W.PN.CT ---
Today's Communication / Plan
-
-pod #2
-nausea is better. Abd XRY on 06/24 was nonobstructive- follow
-review CXR
-CT output: 2 meds 100/230 in 12/24 hrs
-weaned off O2 - pOx 92-94% on RA
-minimize narcs d/t nausea, decreased flatus
-encourage OOB and IS
Assessment / Plan
-
Assessment:
-S/p Standard sternotomy with aortic and right atrial cannulation/ CABG x 4 (In situ GLOVER to LAD, Ao to RSVG to diagonal sequential to OM 3, Ao to RSVG to RPDA)/Endoscopic vein harvesting of right lower extremity and additional exploration for vein
of the left lower extremity/Left atrial appendage exclusion [45 mm clip]/Rigid sternal fixation, by Dr. Cortés, 06/23/24, pod#2
-Multivessel CAD including 50% mid LM
-NSTEMI (0.196)
-[place]
-LVEF 60-65% per intraop PUJA
-Trace to mild MR
-Hyperlipidemia
-Sinus bradycardia at baseline (45 bpm)
-Incomplete RBBB
-Hypotension at baseline
-Chronic back pain
-Chronic neck pain
-History of significant chest trauma with multiple fractured ribs on the right side and collarbone
-S/p R collar bone reconstruction
-S/P R ankle repair
-Acute postop blood loss/Anemia (stable without transfusion)
-Acute postop atelectasis/small L pleur effusion
-Acute postop hypovolemia with subsequent hypervolemia
Discussed patient care with: Nursing and Care Team
Subjective
Procedure
S/P Standard sternotomy with aortic and right atrial cannulation/ CABG x 4 (In situ GLOVER to LAD, Ao to RSVG to diagonal sequential to OM 3, Ao to RSVG to RPDA)/Endoscopic vein harvesting of right lower extremity and additional exploration for vein
of the left lower extremity/Left atrial appendage exclusion [45 mm clip]/Rigid sternal fixation, by Dr. Cortés, 06/23/24
-
Date of Service: June 25, 2024
Objective Data
-
Lab Results
06/25/24 04:11
06/25/24 04:11
PT 17.5 Sec (11.4-14.6) H 06/24/24 03:28
INR 1.43 06/24/24 03:28
APTT 32.7 Sec (23.4-35.0) 06/23/24 18:01
Vital Signs
Vital Signs
Temp Pulse Resp BP Pulse Ox
98.5 F 73 20 91/55 92
06/25/24 04:00 06/25/24 04:45 06/25/24 04:00 06/25/24 04:19 06/25/24 04:45
CT Intake/Output/Weight
06/24/24 06/24/24 06/25/24
06:59 18:59 06:59
Intake Total 858.1 / 1589.0 629.0 / 629.0
Output Total 1295 / 1930 455 / 855 400 / 855
Balance -436.9 / -341.0 174.0 / -226.0 -400 / -226.0
SaO2: 92
Physical Exam
-
General: Awake and AOx3
Cardiovascular: Regular rate & rhythm, No Murmurs and No Rub
Respiratory: Decreased Breath Sounds
Sternum: Stable
Incision: Clean, Dry and Dressing Intact
Extremities: No Edema (2+ DPs b/l)
Data Reviewed
-
Lab Results: Results Reviewed
Medications: Active Meds Reviewed
Chest X-Ray: Report Reviewed and Image Reviewed
ECG: Report Reviewed and Image Reviewed
[2024-06-25] MEDS: TYLENOL PO (06:18)
[2024-06-25] MEDS: LR 250 IV (06:45)
--- NOTE | 2024-06-25 06:48 | PTCARENOTE ---
Pt's continue to trend low. MAp has dropped below 65. Pt will remain in bed and received 250 LR bolus per CVPA. call soliman within reach. will continue to monitor.
[2024-06-25 07:40] LABS: Glucose - Point of Care 127 mg/dl (70-99)
--- NOTE | 2024-06-25 08:00 | PTCARENOTE ---
pt received from previous RN, oriented, in bed. SR on the monitor, HR 70s. V wire insulated. SBP 90s. palpable pulses. pt placed on 6LNC per MARINE CARGO SURVEYOR, 100% POX. lungs clear, diminished on R side. IS encouraged. CT x2, no air leak or crepitus noted. pt
abdomen s/n, denies n/v. diet tolerated well. +BS, +flatus. voids. sternal incision MOI. chest tube site c/d/i. R groin intact. R knee incision TRANSITIONAL STUDIES INSTRUCTOR. LLE incision MOI. RIJ cordis maintained. PIV. LR bolus running as ordered. see worklist for VS, I&O,
and assessment.
[2024-06-25] MEDS: LOPRESSOR PO (09:07)
[2024-06-25] MEDS: FEOSOL 325 MG PO (09:15)
[2024-06-25] MEDS: LOW STRENGTH ASPIRIN 81 MG PO (09:15)
[2024-06-25] MEDS: VITAMIN C 500 MG PO (09:15)
[2024-06-25] MEDS: PROTONIX 40 MG PO (09:15)
[2024-06-25] MEDS: SENOKOT-S 1 TABLET PO ×2 (09:15→21:08)
[2024-06-25] MEDS: LIDOCAINE 4% PATCH 1 PATCH TOPICAL ×2 (09:15→09:16)
[2024-06-25] MEDS: NEURONTIN 100 MG PO ×3 (09:15→21:08)
[2024-06-25] MEDS: BACTROBAN 2% OINTMENT 1 APPLIC NASAL ×2 (09:16→21:07)
[2024-06-25] MEDS: PLAVIX 75 MG PO (09:31)
--- NOTE | 2024-06-25 12:00 | PTCARENOTE ---
pt VSS, Mediastinal CTs dc'd as ordered. dressing c/d/i. CXR completed. OOB to chair w/ assist.
--- NOTE | 2024-06-25 12:00 | W.PN.CARDCBS ---
Addendum entered and electronically signed by Robert Josue MD 06/25/24 12:43:
I saw and examined the patient.
The Automobile Salesman's note was reviewed and I agree with the note.
Comment:
GEN: No distress, awake, Ox3
HEENT: supple, anicteric, mmm
LUNGS: scatt rhonchi
CV: Reg, S1/S2, 1/6 syst LSB, no gallop
ABD: soft, BS+, NT/ND
EXT: No edema
NEURO: Gross non-focal
SKIN: No rash
Plan:
Has a PTX today. Repeat CXR.
Cont Metoprolol, ASA, Plavix, Atorvastatin
In sinus. HG 9.8
Original Note:
Today's Communication / Plan
-
continue post op care
follow PTX
Impression / Plan
-
Primary Boxcar Weigher: Dr. Josue
Assessment:
MV CAD s/p CABG x4 In situ GLOVER to LAD, Ao to RSVG to diagonal sequential to OM 3, Ao to RSVG to RPDA, JAMES clip, rigid sternal fixation 06/23/24
Post operative nausea
NSTEMI 06/05/24, initially treated at [facility]
HLD
Sinus bradycardia
Incomplete RBBB
Chronic back and neck pain
History of significant chest trauma with multiple fractured ribs on the right side and collarbone
FH of CAD
Echo 06/17/2024: EF 60 to 65%, no significant valvular abnormalities
Plan:
-Status post CABG x 4 In situ GLOVER to LAD, Ao to RSVG to diagonal sequential to OM 3, Ao to RSVG to RPDA, JAMES clip, rigid sternal fixation 06/23/24
-nausea improved. abd xray without obstruction
-CXR with mod PTX. awaiting repeat CXR read. hopefully can continue conservative mgmt
-in SR on review of tele
-follow hgb, down to 9.8. continue asa, plavix
-OOB/IS
-d/w nursing, CT surgery team
Progress Note - Boxcar Weigher
Subjective
Date of Service: June 25, 2024
nausea improved. reports some SOB and 'gurgling' on R side
Objective
Labs:
06/25/24 04:11
06/25/24 04:11
Labs
Hgb 9.8 g/dL (13.0-18.0) L 06/25/24 04:11
Hct 27.1 % (39.0-52.0) L 06/25/24 04:11
Plt Count 178 10^3/uL (130-400) D 06/25/24 04:11
PT 17.5 Sec (11.4-14.6) H 06/24/24 03:28
INR 1.43 06/24/24 03:28
APTT 32.7 Sec (23.4-35.0) 06/23/24 18:01
Sodium 135 mmol/L (135-145) D 06/25/24 04:11
Potassium 4.7 mmol/L (3.5-5.1) 06/25/24 04:11
BUN 37 mg/dl (9-20) H 06/25/24 04:11
Creatinine 1.1 mg/dL (0.7-1.3) 06/25/24 04:11
Glucose 131 mg/dl (70-99) H 06/25/24 04:11
Vital Signs and I&O:
Vital Signs
Temp Pulse Resp BP Pulse Ox
98.4 F 86 18 95/66 99
06/25/24 11:57 06/25/24 11:53 06/25/24 11:57 06/25/24 11:53 06/25/24 11:57
Vital Signs
Temp Pulse Resp BP Pulse Ox
98.4 F 86 18 95/66 99
06/25/24 11:57 06/25/24 11:53 06/25/24 11:57 06/25/24 11:53 06/25/24 11:57
Intake & Output
06/23/24 06/24/24 06/25/24 06/26/24
07:59 07:59 07:59 07:59
Intake Total 1589.0 / 1603.0 874.5 / 874.5 50
Output Total 1929 / 1929 850 / 850
Balance -341.0 / -327.0 24.5 / 24.5
Physical Exam
Physical Exam
GEN: No distress, awake, alert, oriented x3. on supp O2
HEENT: supple, anicteric, mmm, eomi
LUNGS: Decreased BS R side, no wheeze
CV: Reg, S1/S2, no murmur
EXT: No cyanosis, clubbing, edema
NEURO: Gross non-focal
SKIN: Warm, pink, dry. No rash. Sternotomy incision c/d/i
[2024-06-25] MEDS: NSS 500 IV (14:56)
[2024-06-25] MEDS: FLEXERIL 5 MG PO (14:56)
[2024-06-25] MEDS: FERRLECIT 110 MG IV (14:56)
[2024-06-25] MEDS: TYLENOL 1000 MG PO ×2 (15:00→21:08)
--- NOTE | 2024-06-25 15:18 | CM ---
Reviewed chart. Met with Mr. Lazaro to review discharge plans. He states he is feeling well. He states prior to admission he resides with spouse in a one story home with two steps to enter. He states prior to admission he was independent with
ambulation and adls. He does not have any DME in the home. We reviewed [facility] but he would prefer not to have VNA Services if possible. He he agreeable to having the Cardiothoracic Transitional Care Nurse telephone call. He states he will
go to [facility] for Cardiac Rehab. because it is close to his home. He has a prescription plan. Medical work-up in progress. The discharge plan is to return home with his spouse when medically stable.
--- NOTE | 2024-06-25 15:30 | PTCARENOTE ---
pt VSS, no changes in asssessment. Flexeril PRN given for pain.
[2024-06-25 18:46] LABS: Hepatitis C Antibody Negative (Negative)
--- NOTE | 2024-06-25 19:47 | PTCARENOTE ---
assumed care of pt from day shift nurse. pt AAOx3, NSR per tele, v wire insulated, palpable pulses, pox 97-100% 6L NC, lungs clear diminished on R side, IS encouraged, pt tolerated ambulating in hallway, +BS, voids, all surgical sites intact, CT
site c/d/i, PIV intact, RIJ cordis infusing KVO, call soliman within reach, bed locked
[2024-06-25] MEDS: LIPITOR 80 MG PO (21:07)
[2024-06-25] MEDS: LOPRESSOR 12.5 MG PO (21:08)
--- NOTE | 2024-06-25 22:10 | PTCARENOTE ---
pt complaining of increased pain to a 7, Toradol ordered by PA and given
[2024-06-26] VITALS (31 sets, daily range): BP systolic 79–125; BP diastolic 50–81; PULSE 75; O2SAT 96–99; BMI 24.4
--- NOTE | 2024-06-26 00:49 | PTCARENOTE ---
pt resting comfortably in bed, reports no pain, VSS, NSR per tele, assessment remains unchanged
--- NOTE | 2024-06-26 04:00 | PTCARENOTE ---
routine labs drawn and sent assessment remains unchanged
--- NOTE | 2024-06-26 04:30 | PTCARENOTE ---
BP low 79/53, pt resting in bed sleeping, PA notified
[2024-06-26 05:08] LABS: Blood Urea Nitrogen 34 mg/dl (9-20); Calcium 8.1 mg/dl (8.4-10.2); Carbon Dioxide 27 mmol/L (22-30); Chloride 102 mmol/L (98-107); Estimated Creatinine Clearance 85 ml/min; Glucose 121 mg/dl (70-99); Magnesium 2.2 mg/dl (1.6-2.3); Potassium 4.7 mmol/L (3.5-5.1); Sodium 137 mmol/L (135-145); eGFR > 60.00
[2024-06-26 05:32] LABS: Hematocrit 26.1 % (39.0-52.0); Hemoglobin 9.1 g/dL (13.0-18.0); Mean Corp Hgb Conc. 34.9 g/dL (33.0-37.0); Mean Corpuscular Hgb 30.5 pg (27.0-31.0); Mean Corpuscular Volume 87.6 fL (80.0-94.0); Mean Platelet Volume 10.9 fL (7.4-10.4); Platelet Count 127 10^3/uL (130-400); Red Blood Cell Count 2.98 10^6/uL (4.70-6.10); Red Cell Dist. Width 12.6 % (11.5-14.5); White Blood Cell Count 11.2 10^3/uL (4.8-10.8)
--- NOTE | 2024-06-26 06:07 | PTCARENOTE ---
routine labs drawn and sent assessment remains unchanged
--- NOTE | 2024-06-26 06:20 | W.PN.CT ---
Today's Communication / Plan
-
-pod #3
-no issues overnight, says that feels better overall
-pOx 99% on 6L.
-will ask IR to evaluate R PTX for possible CT placement
-labs are stable
-encourage OOB and IS
Assessment / Plan
-
Assessment:
-S/p Standard sternotomy with aortic and right atrial cannulation/ CABG x 4 (In situ GLOVER to LAD, Ao to RSVG to diagonal sequential to OM 3, Ao to RSVG to RPDA)/Endoscopic vein harvesting of right lower extremity and additional exploration for vein
of the left lower extremity/Left atrial appendage exclusion [45 mm clip]/Rigid sternal fixation, by Dr. Cortés, 06/23/24, pod#3
-Multivessel CAD including 50% mid LM
-NSTEMI (0.196)
-[place]
-LVEF 60-65% per intraop PUJA
-Trace to mild MR
-Hyperlipidemia
-Sinus bradycardia at baseline (45 bpm)
-Incomplete RBBB
-Hypotension at baseline
-Chronic back pain
-Chronic neck pain
-History of significant chest trauma with multiple fractured ribs on the right side and collarbone
-S/p R collar bone reconstruction
-S/P R ankle repair
-Acute postop blood loss/Anemia (stable without transfusion)
-Acute postop atelectasis/small L pleur effusion
-Acute postop hypovolemia with subsequent hypervolemia
Discussed patient care with: Nursing and Care Team
Subjective
Procedure
S/P Standard sternotomy with aortic and right atrial cannulation/ CABG x 4 (In situ GLOVER to LAD, Ao to RSVG to diagonal sequential to OM 3, Ao to RSVG to RPDA)/Endoscopic vein harvesting of right lower extremity and additional exploration for vein
of the left lower extremity/Left atrial appendage exclusion [45 mm clip]/Rigid sternal fixation, by Dr. Cortés, 06/23/24
-
Date of Service: June 26, 2024
Objective Data
-
Lab Results
06/26/24 04:46
06/26/24 04:46
PT 17.5 Sec (11.4-14.6) H 06/24/24 03:28
INR 1.43 06/24/24 03:28
APTT 32.7 Sec (23.4-35.0) 06/23/24 18:01
Vital Signs
Vital Signs
Temp Pulse Resp BP Pulse Ox
97.7 F 70 16 99/63 99
06/26/24 00:09 06/26/24 00:07 06/26/24 00:09 06/26/24 00:07 06/26/24 00:09
CT Intake/Output/Weight
06/25/24 06/25/24 06/26/24
06:59 18:59 06:59
Intake Total 480 / 480
Output Total 415 / 870 395 / 645 250 / 645
Balance -415 / -241.0 85 / -165 -250 / -165
SaO2: 99
Physical Exam
-
General: Awake and AOx3
Cardiovascular: Regular rate & rhythm, No Murmurs and No Rub
Respiratory: Decreased Breath Sounds
Sternum: Stable
Incision: Clean, Dry and Intact
Extremities: No Edema (2+ DPs)
Data Reviewed
-
Lab Results: Results Reviewed
Medications: Active Meds Reviewed
Chest X-Ray: Report Reviewed and Image Reviewed
ECG: Report Reviewed and Image Reviewed
--- NOTE | 2024-06-26 08:02 | W.PN.UPDATE ---
Addendum entered and electronically signed by IVAN Chase 06/26/24 16:54:
*Pulled
Original Note:
Update Note
Progress Note Update
Patient has not required pacing wires. There has been no bradycardia, arrhythmias, complete heart block, or significant pauses.
Site was cleansed with CHG thoroughly.
1 ventricular epicardial pacing wires were pulled/cut at the skin. Bedrest x1 hour and VS [id number] x 4.
Kat LOVE
Cardiac Surgery
--- NOTE | 2024-06-26 08:11 | PTCARENOTE ---
0700 - Patient received from dairy husbandry worker resting oob in chair, AAO X 3, states pain controlled at this time. NSR via cm, SaO2 @ 100% on 6lnc. RIJ Cordis w/kvo infusing. Epicardial V-wire, insulated to chest wall. All procedural sites stable. Patient
updated to plan of care for the day, in agreement. See work list for full assessment and interventions performed.
0800 - Patient returned to bed. Epicardial V-wire d/c'd by BINTA Anthony w/out incident. Bedrest maintained, VS obtained per protocol.
[2024-06-26] MEDS: TYLENOL PO ×2 (08:14→13:50)
[2024-06-26] MEDS: SENOKOT-S 1 TABLET PO ×2 (08:30→19:38)
[2024-06-26] MEDS: LOPRESSOR 12.5 MG PO ×2 (08:30→19:38)
[2024-06-26] MEDS: BACTROBAN 2% OINTMENT 1 APPLIC NASAL ×2 (08:30→19:43)
[2024-06-26] MEDS: LOW STRENGTH ASPIRIN 81 MG PO (08:30)
[2024-06-26] MEDS: VITAMIN C 500 MG PO (08:30)
[2024-06-26] MEDS: NEURONTIN 100 MG PO ×3 (08:30→21:08)
[2024-06-26] MEDS: FEOSOL 325 MG PO (08:30)
[2024-06-26] MEDS: PLAVIX 75 MG PO (08:30)
[2024-06-26] MEDS: LIDOCAINE 4% PATCH 1 PATCH TOPICAL ×2 (08:31)
[2024-06-26] MEDS: PROTONIX 40 MG PO (08:35)
--- NOTE | 2024-06-26 11:08 | CM ---
dc plans remian home when medically stable and a f/u tele-call from the ct transitional care nurses.
--- NOTE | 2024-06-26 12:25 | PN.CDI ---
CDI
- -
CDI:
Physician Documentation Request
Admit Date: 06/23/24 07:[address] Surgery,
Patient admitted for CABG.
06/26 CT Surgery PN: 'pod #3...-pOx 99% on 6L. -will ask IR to evaluate R PTX for possible CT placement...-Acute postop atelectasis/small L pleur effusion'
Selected Entries
06/24/24
00:15 06/24/24
02:00 06/24/24
07:00
Nasal Cannula flow liters per minute 6 4 2
06/24/24
19:17 06/25/24
08:00 06/26/24
00:09
Nasal Cannula flow liters per minute 2 6 6
Clarify which of the following accurately represents the patient's respiratory status following surgery:
Acute hypoxic respiratory failure
Acute post-operative pulmonary insufficiency
Hypoxia
Other
Additional information for Pulmonary Insufficiency:
Consider when patients require shelter oxygen therapy postoperatively
Weaned off oxygen initially then requiring supplemental oxygen
No other definitive diagnosis to support the need for oxygen (COPD exac, CHF etc.)
Unable to wean from vent
When criteria for respiratory failure not present
May extend stay or require additional resources; may need home O2
Additional information for Respiratory Failure:
Recognized criteria for Respiratory Failure (Source: [employer] Hospitalist Aug 2013)
ABGs: (1 or more) Symptoms Indicate:
1. p)2 <60 or RA SPO2 <91% on RA 1. Tachypnea, SOB, dyspnea 1. Type as:
2. pCO2 50 and pH <7.35 2. Use of accessory muscles a. Hypoxic
3. pO2 decrease of pCO2 increase by 3. Pallor or cyanosis b. Hypercapnic
10 mmHg from baseline if known 4. Anxiety or restlessness 2. If due to procedure or due to another cause
5. Unable to speak in full sentences
Supplemental O2 of > 40% Intubation is not required
Use of terms such as suspected, likely, concern for, or probable (associated with a specific diagnosis that is being evaluated, monitored, or treated as if it exists) are acceptable and can be coded in the inpatient setting, when documented at the
time of discharge.
Thank you,
Flora Flores RN, BSN
CDI Specialist
Available via [place] text
Please use your independent medical judgment in providing your response.
[2024-06-26] MEDS: TORADOL 15 MG IV ×2 (13:49→19:39)
[2024-06-26] MEDS: FERRLECIT 110 MG IV (13:49)
--- NOTE | 2024-06-26 14:49 | PTCARENOTE ---
Patient sent to IR for CT placement via transport. Patient ambulated to the stretcher. On 6LNC, NSR on monitor, VSS.
--- NOTE | 2024-06-26 15:04 | W.PN.UPDATE ---
Update Note
Progress Note Update
CDI QUERY RESPONSE
[id number] used to hyperinflate lung
--- NOTE | 2024-06-26 15:14 | W.PN.CARDCBS ---
Addendum entered and electronically signed by Shane Sanchez MD 06/26/24 16:06:
I saw and examined the patient.
The CIRCULAR KNITTER HELPER or PA's note was reviewed and I agree with the note.
Comment: General: Well developed, well nourished in NAD.
Neck: Supple, no JVD, HJR, carotids +2 B/L, no bruits bilaterally.
Heart: Non displaced PMI, RRR, no murmurs, No S3, S4, no rubs.
Lungs: Scattered rhonchi
Sternal dressings noted
Extremities: No clubbing, cyanosis or edema bilaterally.
Neuro: Grossly nonfocal, awake, alert and oriented x3.
Stable cardiology status. Needs chest tube for pneumothorax. Remains in sinus rhythm
Original Note:
Today's Communication / Plan
-
IRAD eval for CT re-placement
continue post op care
in SR
Impression / Plan
-
Primary Refrigeration Engineering Teacher: Dr. Josue
Assessment:
MV CAD s/p CABG x4 In situ GLOVER to LAD, Ao to RSVG to diagonal sequential to OM 3, Ao to RSVG to RPDA, JAMES clip, rigid sternal fixation 06/23/24
Post operative nausea
NSTEMI 06/05/24, initially treated at [facility]
HLD
Sinus bradycardia
Incomplete RBBB
Chronic back and neck pain
History of significant chest trauma with multiple fractured ribs on the right side and collarbone
FH of CAD
Echo 06/17/2024: EF 60 to 65%, no significant valvular abnormalities
Plan:
-Status post CABG x 4 In situ GLOVER to LAD, Ao to RSVG to diagonal sequential to OM 3, Ao to RSVG to RPDA, JAMES clip, rigid sternal fixation 06/23/24
-CXR this AM remains with mod R PTX. on 6 L NC. for IRAD eval and possible CT re-placement.
-remains in SR on review of tele
-follow hgb, 9.1 on 06/26. continue asa, plavix
-OOB/IS
-d/w nursing
Progress Note - Refrigeration Engineering Teacher
Subjective
Date of Service: June 26, 2024
IRAD today for eval for CT replacement. remains on 6L
Objective
Labs:
06/26/24 04:46
06/26/24 04:46
Labs
Hgb 9.1 g/dL (13.0-18.0) L 06/26/24 04:46
Hct 26.1 % (39.0-52.0) L 06/26/24 04:46
Plt Count 127 10^3/uL (130-400) L D 06/26/24 04:46
PT 17.5 Sec (11.4-14.6) H 06/24/24 03:28
INR 1.43 06/24/24 03:28
APTT 32.7 Sec (23.4-35.0) 06/23/24 18:01
Sodium 137 mmol/L (135-145) 06/26/24 04:46
Potassium 4.7 mmol/L (3.5-5.1) 06/26/24 04:46
BUN 34 mg/dl (9-20) H 06/26/24 04:46
Creatinine 0.9 mg/dL (0.7-1.3) 06/26/24 04:46
Glucose 121 mg/dl (70-99) H 06/26/24 04:46
Vital Signs and I&O:
Vital Signs
Temp Pulse Resp BP Pulse Ox
98.0 F 71 16 110/62 99
06/26/24 12:02 06/26/24 15:00 06/26/24 12:02 06/26/24 12:02 06/26/24 12:02
Vital Signs
Temp Pulse Resp BP Pulse Ox
98.0 F 71 16 110/62 99
06/26/24 12:02 06/26/24 15:00 06/26/24 12:02 06/26/24 12:02 06/26/24 12:02
Intake & Output
06/24/24 06/25/24 06/26/24 06/27/24
07:59 07:59 07:59 07:59
Intake Total 1589.0 / 1603.0 874.5 / 874.5 220 / 220 270 / 270
Output Total 1929 / 1929 850 / 850 645 / 645
Balance -341.0 / -327.0 24.5 / 24.5 -425 / -425 270 / 270
[2024-06-26] MEDS: NSS IV (17:35)
[2024-06-26] MEDS: FLEET PHOSPHATE ENEMA-ADULT 135 ML RECTAL (19:47)
--- NOTE | 2024-06-26 19:50 | PTCARENOTE ---
Assumed care of patient. Patient AOx3, lying in bed. c/o discomfort from new chest tube site, asked for pain medication, see MAR. patient assessed, see flowsheet. Patient requesting a fleets enema for constipation, notified BINTA and requested order.
Patient has right cordis in place, KVO running. Right anterior chest tube in place, no crepitus, chest tube hooked up to -20 cm of suction. Vital signs obtained. call soliman within reach, safety maintained.
[2024-06-26] MEDS: TYLENOL 1000 MG PO (21:08)
[2024-06-26] MEDS: LIPITOR 80 MG PO (21:08)
[2024-06-27] VITALS (17 sets, daily range): BP systolic 84–131; BP diastolic 47–83; PULSE 64; O2SAT 98–99; BMI 24.8
[2024-06-27] MEDS: TORADOL 15 MG IV (01:42)
[2024-06-27] MEDS: TYLENOL 650 MG PO (03:59)
[2024-06-27] MEDS: LIDOCAINE 4% PATCH 1 PATCH TOPICAL (03:59)
--- NOTE | 2024-06-27 04:28 | PTCARENOTE ---
Pt OOB to ambulate to the bathroom, upon walking back, patients HR 120's and patient is in afib. Notified BINTA, amio bolus and gtt ordered. Will continue to monitor. BP stable at this time.
[2024-06-27 04:45] LABS: Hematocrit 24.3 % (39.0-52.0); Hemoglobin 8.5 g/dL (13.0-18.0); Mean Corpuscular Hgb 29.6 pg (27.0-31.0); Mean Corpuscular Volume 84.7 fL (80.0-94.0); Platelet Count 137 10^3/uL (130-400); Red Blood Cell Count 2.87 10^6/uL (4.70-6.10); Red Cell Dist. Width 12.7 % (11.5-14.5); White Blood Cell Count 9.3 10^3/uL (4.8-10.8)
[2024-06-27] MEDS: CORDARONE 103 MG IV (05:16)
[2024-06-27 05:29] LABS: Blood Urea Nitrogen 32 mg/dl (9-20); Calcium 8.1 mg/dl (8.4-10.2); Carbon Dioxide 27 mmol/L (22-30); Chloride 102 mmol/L (98-107); Estimated Creatinine Clearance 76 ml/min; Glucose 104 mg/dl (70-99); Magnesium 2.2 mg/dl (1.6-2.3); Potassium 4.7 mmol/L (3.5-5.1); Sodium 137 mmol/L (135-145); eGFR > 60.00
[2024-06-27] MEDS: CORDARONE 518 MG IV (05:29)
--- NOTE | 2024-06-27 06:09 | W.PN.CT ---
Today's Communication / Plan
-
-pod #4
-in and out of a-fib this am 130s- tx with Amio bolus and drip
-s/p placement of R CT by IR on 06/26. CT on -20 sxn, no air leak
-follow CXR
-hypotension, asymptomatic. H/h 8.5/24.3 today (hg 9.1 on 06/26)
-wt is up 7 lbs from preop- ? 1pRBC and diuresis
-current meds (ASA, Plavix, Lipitor, Lopressor, Mucinex, Feosol, vit C, Protonix)
-encourage OOB and IS
Assessment / Plan
-
Assessment:
-S/p Standard sternotomy with aortic and right atrial cannulation/ CABG x 4 (In situ GLOVER to LAD, Ao to RSVG to diagonal sequential to OM 3, Ao to RSVG to RPDA)/Endoscopic vein harvesting of right lower extremity and additional exploration for vein
of the left lower extremity/Left atrial appendage exclusion [45 mm clip]/Rigid sternal fixation, by Dr. Cortés, 06/23/24, pod#4
-Multivessel CAD including 50% mid LM
-NSTEMI (0.196)
-[place]
-LVEF 60-65% per intraop PUJA
-Trace to mild MR
-Hyperlipidemia
-Sinus bradycardia at baseline (45 bpm)
-Incomplete RBBB
-Hypotension at baseline
-Chronic back pain
-Chronic neck pain
-History of significant chest trauma with multiple fractured ribs on the right side and collarbone
-S/p R collar bone reconstruction
-S/P R ankle repair
-Acute postop blood loss/Anemia (stable without transfusion)
-Acute postop atelectasis/small L pleur effusion
-Acute postop hypovolemia with subsequent hypervolemia
-Acute postop R PTX - on oxygen used to hyperinflate lung- s/p R CT on 06/26
-Acute postop afib with RVR 130s on 06/27 (in and out) - tx with Amio bolus and drip
Discussed patient care with: Nursing and Care Team
Subjective
Procedure
S/P Standard sternotomy with aortic and right atrial cannulation/ CABG x 4 (In situ GLOVER to LAD, Ao to RSVG to diagonal sequential to OM 3, Ao to RSVG to RPDA)/Endoscopic vein harvesting of right lower extremity and additional exploration for vein
of the left lower extremity/Left atrial appendage exclusion [45 mm clip]/Rigid sternal fixation, by Dr. Cortés, 06/23/24
-
Date of Service: June 27, 2024
Objective Data
-
PT 17.5 Sec (11.4-14.6) H 06/24/24 03:28
INR 1.43 06/24/24 03:28
APTT 32.7 Sec (23.4-35.0) 06/23/24 18:01
Vital Signs
Vital Signs
Temp Pulse Resp BP Pulse Ox
98.1 F 72 16 86/52 99
06/26/24 23:52 06/26/24 22:30 06/26/24 17:00 06/26/24 22:30 06/26/24 23:52
CT Intake/Output/Weight
06/26/24 06/26/24 06/27/24
06:59 18:59 06:59
Intake Total 720 / 720
Output Total 250 / 645
Balance -250 / -165 720 / 720
SaO2: 99
Physical Exam
-
General: Awake and AOx3
Cardiovascular: Regular rate & rhythm, No Murmurs and No Rub
Respiratory: Decreased Breath Sounds
Sternum: Stable
Incision: Clean, Dry and Intact
Extremities: No Edema (2+ DPs)
Data Reviewed
-
Lab Results: Results Reviewed
Medications: Active Meds Reviewed
Chest X-Ray: Report Reviewed and Image Reviewed
ECG: Report Reviewed and Image Reviewed
[2024-06-27] MEDS: TYLENOL PO ×3 (08:33→21:49)
[2024-06-27] MEDS: ProAmatine 5 MG PO ×3 (08:40→17:13)
[2024-06-27] MEDS: LOW STRENGTH ASPIRIN 81 MG PO (08:40)
[2024-06-27] MEDS: PLAVIX 75 MG PO (08:40)
[2024-06-27] MEDS: LASIX 20 MG IV (08:40)
[2024-06-27] MEDS: FEOSOL 325 MG PO (08:40)
[2024-06-27] MEDS: VITAMIN C 500 MG PO (08:40)
[2024-06-27] MEDS: NEURONTIN 100 MG PO (08:40)
[2024-06-27] MEDS: BACTROBAN 2% OINTMENT 1 APPLIC NASAL (08:41)
[2024-06-27] MEDS: MUCINEX 600 MG PO ×2 (08:41→19:59)
[2024-06-27] MEDS: LIDOCAINE 4% PATCH TOPICAL (08:41)
[2024-06-27] MEDS: PROTONIX 40 MG PO (08:41)
[2024-06-27] MEDS: SENOKOT-S 1 TABLET PO ×2 (08:41→20:00)
[2024-06-27] MEDS: LOPRESSOR 12.5 MG PO ×2 (08:41→19:59)
--- NOTE | 2024-06-27 09:00 | PTCARENOTE ---
assumed care of pt from previous shift RN, sinus rhythm on tele w HR 60's, bp 97/64, + peripheral pulses, no edema. Lungs diminished, pox 95% on RA. +bs, tolerating PO intake, voids spontaneously. Post op sites remain intact. Right IJ cordis w KVO
and amiodarone infusing as ordered. PIV flushes easily. Plan of care reviewed w the pt and questions encouraged.
--- NOTE | 2024-06-27 09:30 | W.PN.CARDCBS ---
Today's Communication / Plan
-
1 hour episode of A-fib on 97 AM
In sinus rhythm at present
Continue amiodarone
Impression / Plan
-
Primary Director Of Materials Management: Dr. Josue
Assessment:
MV CAD s/p CABG x4 In situ GLOVER to LAD, Ao to RSVG to diagonal sequential to OM 3, Ao to RSVG to RPDA, JAMES clip, rigid sternal fixation 06/23/24
Post operative nausea
NSTEMI 06/05/24, initially treated at [facility]
HLD
Sinus bradycardia
Incomplete RBBB
Chronic back and neck pain
History of significant chest trauma with multiple fractured ribs on the right side and collarbone
FH of CAD
Echo 06/17/2024: EF 60 to 65%, no significant valvular abnormalities
Plan:
He continues to do well from a cardiology standpoint
1 hour episode of A-fib on 97 AM and currently in sinus rhythm
We will continue to follow on amiodarone
Plan is to clamp chest tube later today
Discussed with CT surgery
Progress Note - Director Of Materials Management
Subjective
Date of Service: June 27, 2024
No chest pain or shortness of breath. 1 hour episode of A-fib this morning
Objective
Labs:
06/27/24 04:07
06/27/24 04:07
Labs
Hgb 8.5 g/dL (13.0-18.0) L 06/27/24 04:07
Hct 24.3 % (39.0-52.0) L 06/27/24 04:07
Plt Count 137 10^3/uL (130-400) 06/27/24 04:07
PT 17.5 Sec (11.4-14.6) H 06/24/24 03:28
INR 1.43 06/24/24 03:28
APTT 32.7 Sec (23.4-35.0) 06/23/24 18:01
Sodium 137 mmol/L (135-145) 06/27/24 04:07
Potassium 4.7 mmol/L (3.5-5.1) 06/27/24 04:07
BUN 32 mg/dl (9-20) H 06/27/24 04:07
Creatinine 1.0 mg/dL (0.7-1.3) 06/27/24 04:07
Glucose 104 mg/dl (70-99) H 06/27/24 04:07
Vital Signs and I&O:
Vital Signs
Temp Pulse Resp BP Pulse Ox
98.1 F 69 16 85/55 99
06/26/24 23:52 06/27/24 05:19 06/26/24 17:00 06/27/24 05:19 06/27/24 01:42
Vital Signs
Temp Pulse Resp BP Pulse Ox
98.1 F 69 16 85/55 99
06/26/24 23:52 06/27/24 05:19 06/26/24 17:00 06/27/24 05:19 06/27/24 01:42
Intake & Output
06/25/24 06/26/24 06/27/24 06/28/24
06:59 06:59 06:59 06:59
Intake Total 629.0 / 629.0 480 / 480 720 / 720
Output Total 870 / 870 645 / 645
Balance -241.0 / -241.0 -165 / -165 720 / 720
Physical Exam
Physical Exam
General: Well developed, well nourished in NAD.
Neck: Supple, no JVD, HJR, carotids +2 B/L, no bruits bilaterally.
Heart: Non displaced PMI, RRR, no murmurs, No S3, S4, no rubs.
Lungs: Scattered rhonchi
Sternal dressings noted
Extremities: No clubbing, cyanosis or edema bilaterally.
Neuro: Grossly nonfocal, awake, alert and oriented x3.
--- NOTE | 2024-06-27 12:40 | PTCARENOTE ---
VSS, sinus rhythm on tele, ct remains clamped. CXR completed. Amio gtt maintained.
[2024-06-27] MEDS: FLEET MINERAL OIL ENEMA 133 ML RECTAL (15:24)
[2024-06-27] MEDS: NSS 500 IV (17:13)
[2024-06-27] MEDS: DILAUDID 0.25 MG IV (19:58)
[2024-06-27] MEDS: MAGNESIUM OXIDE 500 MG PO (19:59)
--- NOTE | 2024-06-27 21:30 | PTCARENOTE ---
Assumed care of pt. at change of shift. NSR on tele with HR 70s. BP 110/61 satting 94% on RA. Pt. with complaints of 7/10 pain in neck and site where chest tube was removed and unable to take oral pain medication due to decreased appetite and
nausea. IV Dilaudid administered per order, see MAR. DEJUAN Rahman infusing Amiodarone at 5mg/min per protocol and NS KVO at 10ml/hr. All surgical sites C/D/I w/ no complications noted. Pt. ambulating independently in room without difficulty. Can
make needs known. Call soliman within reach.
[2024-06-27] MEDS: LIPITOR 80 MG PO (22:11)
--- NOTE | 2024-06-28 03:00 | PTCARENOTE ---
Pt with complaints of constipation and requesting enema. Pt self administered enema and reports medium sized BM with significant relief of abdominal discomfort.
[2024-06-28 03:31] VITALS: BP 127/87
[2024-06-28 03:35] VITALS: BMI 24.6
[2024-06-28] MEDS: FLEET PHOSPHATE ENEMA-ADULT 135 ML RECTAL (03:37)
[2024-06-28] MEDS: TYLENOL PO (05:26)
--- NOTE | 2024-06-28 05:53 | W.PN.CT ---
Today's Communication / Plan
-
-pod #5
-pAF with RVR, now in NSR
-s/p placement of R CT by IR on 06/26. CT on -20 sxn, no air leak, CT out 06/27
-follow CXR
-current meds (ASA, Plavix, Lipitor, Lopressor, Mucinex, Feosol, vit C, Protonix)
-encourage OOB and IS
Assessment / Plan
-
Assessment:
-S/p Standard sternotomy with aortic and right atrial cannulation/ CABG x 4 (In situ GLOVER to LAD, Ao to RSVG to diagonal sequential to OM 3, Ao to RSVG to RPDA)/Endoscopic vein harvesting of right lower extremity and additional exploration for vein
of the left lower extremity/Left atrial appendage exclusion [45 mm clip]/Rigid sternal fixation, by Dr. Cortés, 06/23/24, pod#5
-Multivessel CAD including 50% mid LM
-NSTEMI (0.196)
-[place]
-LVEF 60-65% per intraop PUJA
-Trace to mild MR
-Hyperlipidemia
-Sinus bradycardia at baseline (45 bpm)
-Incomplete RBBB
-Hypotension at baseline
-Chronic back pain
-Chronic neck pain
-History of significant chest trauma with multiple fractured ribs on the right side and collarbone
-S/p R collar bone reconstruction
-S/P R ankle repair
-Acute postop blood loss/Anemia (stable without transfusion)
-Acute postop atelectasis/small L pleur effusion
-Acute postop hypovolemia with subsequent hypervolemia
-Acute postop R PTX - on oxygen used to hyperinflate lung- s/p R CT on 06/26
-Acute postop afib with RVR 130s on 06/27 (in and out) - tx with Amio bolus and drip
Subjective
Procedure
S/P Standard sternotomy with aortic and right atrial cannulation/ CABG x 4 (In situ GLOVER to LAD, Ao to RSVG to diagonal sequential to OM 3, Ao to RSVG to RPDA)/Endoscopic vein harvesting of right lower extremity and additional exploration for vein
of the left lower extremity/Left atrial appendage exclusion [45 mm clip]/Rigid sternal fixation, by Dr. Cortés, 06/23/24
-
Date of Service: June 28, 2024
Objective Data
-
Lab Results
06/27/24 04:07
06/27/24 04:07
PT 17.5 Sec (11.4-14.6) H 06/24/24 03:28
INR 1.43 06/24/24 03:28
APTT 32.7 Sec (23.4-35.0) 06/23/24 18:01
Vital Signs
Vital Signs
Temp Pulse Resp BP Pulse Ox
98.6 F 74 18 127/87 98
06/28/24 03:32 06/28/24 03:31 06/28/24 03:32 06/28/24 03:31 06/28/24 03:32
CT Intake/Output/Weight
06/27/24 06/27/24 06/28/24
06:59 18:59 06:59
Intake Total 53.3 / 53.3
Output Total 700 / 700
Balance -646.7 / -646.7
SaO2: 98
Physical Exam
-
General: Awake, Oriented and AOx3
Cardiovascular: Regular rate & rhythm
Respiratory: Clear
Sternum: Stable
Incision: Clean and Dry
Extremities: No Edema
Data Reviewed
-
Lab Results: Results Reviewed
Medications: Active Meds Reviewed
Chest X-Ray: Report Reviewed
ECG: Report Reviewed, Image Reviewed and Discussed w/ Cardiology
[2024-06-28] MEDS: ZOFRAN 4 MG IV (06:05)
[2024-06-28 07:41] VITALS: BP 106/62
[2024-06-28 08:26] LABS: Blood Urea Nitrogen 19 mg/dl (9-20); Calcium 8.2 mg/dl (8.4-10.2); Carbon Dioxide 25 mmol/L (22-30); Chloride 100 mmol/L (98-107); Estimated Creatinine Clearance 85 ml/min; Glucose 153 mg/dl (70-99); Potassium 4.5 mmol/L (3.5-5.1); Sodium 134 mmol/L (135-145); eGFR > 60.00
[2024-06-28 08:36] LABS: Hematocrit 27.5 % (39.0-52.0); Hemoglobin 9.8 g/dL (13.0-18.0); Mean Corp Hgb Conc. 35.6 g/dL (33.0-37.0); Mean Corpuscular Hgb 31.1 pg (27.0-31.0); Mean Corpuscular Volume 87.3 fL (80.0-94.0); Mean Platelet Volume 10.3 fL (7.4-10.4); Platelet Count 204 10^3/uL (130-400); Red Blood Cell Count 3.15 10^6/uL (4.70-6.10); Red Cell Dist. Width 12.6 % (11.5-14.5); White Blood Cell Count 10.4 10^3/uL (4.8-10.8)
[2024-06-28] MEDS: PLAVIX 75 MG PO (09:34)
[2024-06-28] MEDS: FEOSOL 325 MG PO (09:34)
[2024-06-28] MEDS: SENOKOT-S 1 TABLET PO (09:34)
[2024-06-28] MEDS: VITAMIN C 500 MG PO (09:34)
[2024-06-28] MEDS: PROTONIX 40 MG PO (09:34)
[2024-06-28] MEDS: MAGNESIUM OXIDE 500 MG PO (09:34)
[2024-06-28] MEDS: LOPRESSOR 12.5 MG PO (09:34)
[2024-06-28] MEDS: MUCINEX 600 MG PO (09:34)
[2024-06-28] MEDS: LOW STRENGTH ASPIRIN 81 MG PO (09:34)
[2024-06-28] MEDS: LIDOCAINE 4% PATCH 1 PATCH TOPICAL (09:34)
[2024-06-28] MEDS: LASIX 40 MG IV (09:35)
[2024-06-28] MEDS: LIDOCAINE 4% PATCH TOPICAL (09:35)
--- NOTE | 2024-06-28 09:39 | W.PN.CARDCBS ---
Today's Communication / Plan
-
Stable cardiology status for discharge
Impression / Plan
-
Primary Raise Miner: Dr. Josue
Assessment:
MV CAD s/p CABG x4 In situ GLOVER to LAD, Ao to RSVG to diagonal sequential to OM 3, Ao to RSVG to RPDA, JAMES clip, rigid sternal fixation 06/23/24
Brief A-fib 06/27 AM
NSTEMI 06/05/24, initially treated at [facility]
HLD
Sinus bradycardia
Incomplete RBBB
Chronic back and neck pain
History of significant chest trauma with multiple fractured ribs on the right side and collarbone
FH of CAD
Echo 06/17/2024: EF 60 to 65%, no significant valvular abnormalities
Plan:
Stable cardiology status for discharge
A-fib has not recurred
Discharge on amiodarone 200 mg p.o. twice daily
Discussed with CT surgery PA
Progress Note - Raise Miner
Subjective
Date of Service: June 28, 2024
No complaints
Objective
Labs:
06/28/24 07:45
06/28/24 07:45
Labs
Hgb 9.8 g/dL (13.0-18.0) L 06/28/24 07:45
Hct 27.5 % (39.0-52.0) L 06/28/24 07:45
Plt Count 204 10^3/uL (130-400) D 06/28/24 07:45
PT 17.5 Sec (11.4-14.6) H 06/24/24 03:28
INR 1.43 06/24/24 03:28
APTT 32.7 Sec (23.4-35.0) 06/23/24 18:01
Sodium 134 mmol/L (135-145) L 06/28/24 07:45
Potassium 4.5 mmol/L (3.5-5.1) 06/28/24 07:45
BUN 19 mg/dl (9-20) 06/28/24 07:45
Creatinine 0.9 mg/dL (0.7-1.3) 06/28/24 07:45
Glucose 153 mg/dl (70-99) H 06/28/24 07:45
Vital Signs and I&O:
Vital Signs
Temp Pulse Resp BP Pulse Ox
98.6 F 74 18 127/87 98
06/28/24 03:32 06/28/24 03:31 06/28/24 03:32 06/28/24 03:31 06/28/24 05:54
Vital Signs
Temp Pulse Resp BP Pulse Ox
98.6 F 74 18 127/87 98
06/28/24 03:32 06/28/24 03:31 06/28/24 03:32 06/28/24 03:31 06/28/24 05:54
Intake & Output
06/26/24 06/27/24 06/28/24 06/29/24
06:59 06:59 06:59 06:59
Intake Total 480 / 480 720 / 720 53.3 / 53.3
Output Total 645 / 645 700 / 700
Balance -165 / -165 720 / 720 -646.7 / -646.7
Physical Exam
Physical Exam
General: Well developed, well nourished in NAD.
Neck: Supple, no JVD, HJR, carotids +2 B/L, no bruits bilaterally.
Heart: Non displaced PMI, RRR, no murmurs, No S3, S4, no rubs.
Lungs: Scattered rhonchi
Sternal dressings noted
Extremities: No clubbing, cyanosis or edema bilaterally.
Neuro: Grossly nonfocal, awake, alert and oriented x3.
[2024-06-28] MEDS: ProAmatine PO (09:44)
--- NOTE | 2024-06-28 10:47 | PTCARENOTE ---
assumed care of pt from previous shift RN, sinus rhythm on tele, VSS. routine labs drawn and sent. Cordis removed as ordered. Pt sent for 2 view CXR. Plan for discharge today.
--- NOTE | 2024-06-28 11:00 | W.DCSUMMARY ---
Discharge Summary
Discharge Data
Date of Admission: 06/23/24
Date of Discharge: 06/28/24
Total time spent discharging patient (in min): 45
-
Pending Results: No
Hospital Course
Primary care physician:
Dr. Bridger Gee
Outpatient union steward:
Dr. Josue
Inpatient consultants:
DCA, remelt sugar boiler, interventional radiology
Procedures:
1. CABG x4
Primary Diagnosis:
1. Multivessel Coronary Artery Disease
Secondary Diagnoses:
1. Non-STEMI
2. Hyperlipidemia
3. Sinus bradycardia
4. Hypotension at baseline
5. History of significant chest trauma with multiple rib fractures
6. Postop right pneumothorax
7. Postop atrial fibrillation
HPI: 69-year male who is very active at baseline. He was recently mountain biking in the [facility] and was having severe substernal chest pain and tightness that persisted. He was approximately 6 miles to his friend's home where he was then
sent to the hospital was found to have an NSTEMI. He recently underwent left heart cath which demonstrated left main disease and mild to moderate disease of the RPDA ostium. Due to his left main disease, he met criteria for surgical
revascularization.
Hospital course: Patient presented electively on 06/23 for a coronary artery bypass grafting by Dr. Cortés. He returned to the CVICU on insulin, Precedex, and Levophed infusions. He was weaned off Precedex and was extubated by postop day 0. On 06/24
postoperative day #1 patient had refractory nausea and was treated with Reglan, Zofran, and Compazine. Patient remained n.p.o. and abdominal x-ray did not show ileus. Left pleural chest tube was removed and nausea improved later in the afternoon.
On 06/25 postoperative day #2 patient's nausea resolved however on x-ray a moderate right pneumothorax was observed and he was placed on 6 L nasal cannula. Repeat chest x-ray did not show evolution of the pneumothorax later in the day. Beta-blockers
were on hold due to hypotension. Remaining chest tubes were removed. On 9 postoperative day #3 patient was started on midodrine and beta-blockers. Morning chest x-ray showed that the right pneumothorax was slightly larger so interventional
radiology was consulted for a CT guided chest tube placement. Once patient returned to the unit there was no air leak in the Pleur-evac and on x-ray pneumothorax resolved. On 06/27 postoperative day #4, overnight patient converted into A-fib with
RVR and was treated with Amio drip and bolus. About an hour after patient converted back to sinus rhythm and remained in sinus rhythm. We performed a clamp trial on the CT guided chest tube with repeat chest x-ray later in the day and there was no
pneumothorax therefore the chest tube was removed. On 06/28 postoperative day #5 two-view chest x-ray remained stable. Cordis was removed. Patient's midodrine was down titrated and he was deemed stable for discharge. Patient was instructed to
obtain a blood pressure machine for home.
Home medication changes:
See below
Discharge Plan
-
Patient Disposition: Home (Routine Discharge)
Discharge Diagnosis/Procedures: CAD/CABG x 4, left atrial appendage clip, sternal fixation
Condition: Good
Diet: Low Cholesterol and Low Sodium
Activity: No strenuous activity
Driving Restrictions: Not until seen by your Dr
Bathing Restrictions: OK to Shower
Other Services: Cardiac Rehab
Specialty Instructions: Weigh Daily- Call MD for wt gain/loss 3 lbs overnight/5 lbs in 1 week
Activity Restrictions/Additional Instructions:
Please call [facility] following hospital discharge to schedule your first orientation appointment.

ACTIVITY:
-No strenuous activity: no heavy lifting, pushing, pulling anything over 15 pounds for one month
-continue to use stairs as tolerated
DRIVING RESTRICTIONS:
-No driving for one month or until approved by your surgeon
WOUND CARE:
-Shower daily. Use soap & water.
-No lotions, creams or powders on incision area.
DIET:
-continue a low fat/low cholesterol diet.
-IF you are diabetic, continue carb controlled diet.
CARDIAC REHAB:
-Please make appointment to start in 5-6 weeks with your local hospital program. (See Cardiac Rehabilitation Discharge Booklet).
SPECIALTY INSTRUCTIONS:
-Weigh yourself daily. Call your physician for any weight gain/loss of 3 lbs overnight or 5 lbs in one week.
-REPORT any clicking noise or uneven appearance of your sternum to your surgeon immediately.
-If you smoke, you are instructed to quit. The [place] smoking hotline phone number is [phone]
Referrals:
Vicky Bergeron MD [Active] -
(Recommend follow-up CT chest May 2025 for pulmonary nodule
Pulmonary follow-up at that time is recommended)
Nia Pulliam PA-C [Specified Professional Personl] - 08/05/24 1:20 pm
Diego Cortés MD [Active] - 07/23/24 12:45 pm
UNKNOWN - PT DOES,NOT KNOW [Family Provider] -
Additional Discharge Medication Instructions: Please check your blood pressure before taking your medications.
Note that your Lopressor dose has changed to 12.5mg twice a day instead of 25mg twice a day. Do not go back to your original dose until directed by a medical professional
You will be on amiodarone 200mg twice a day for 2 weeks and then 200mg daily afterwards
Prescriptions:
New
cyclobenzaprine 10 mg Tablet
5 mg PO Q8HPRN PRN (Reason: muscle spasm) Qty: 30 0RF
midodrine 5 mg Tablet
5 mg PO BID Qty: 30 0RF
Rx Instructions:
Check your blood pressure prior to administration. Hold if SBP is >130
pantoprazole 40 mg Tablet,Delayed Release (Dr/Ec)
40 mg PO DAILY Qty: 30 0RF
oxycodone 5 mg Tablet
2.5 mg PO Q4HPRN PRN (Reason: severe pain) Qty: 15 0RF
amiodarone 200 mg tablet
200 mg PO DAILY Qty: 30 0RF
Rx Instructions:
START 2 WEEKS AFTER DISCHARGE
amiodarone 200 mg tablet
200 mg PO BID 14 Days Qty: 28 0RF
metoprolol tartrate 25 mg Tablet
12.5 mg PO Q12 Qty: 60 0RF
furosemide [Lasix] 40 mg tablet
40 mg PO DAILY Qty: 5 0RF
potassium chloride 20 mEq packet
20 meq PO DAILY Qty: 5 0RF
Continued
atorvastatin 80 mg Tablet
80 mg PO HS
aspirin 81 mg Tablet,Chewable
81 mg PO DAILY
clopidogrel 75 mg tablet
75 mg PO NOON
Discontinued
nitroglycerin 0.4 mg Tablet, Sublingual
0.4 mg SUBLINGUAL Q5M PRN (Reason: chest pain)
metoprolol tartrate 25 mg Tablet
25 mg PO BID
Discharge Orders:
Discharge Patient (As Directed); Ordered 06/28/24
Ordered By: Kat Cruz
Care Plan Goals
Care Plan Goals:
Problem: Readiness for enhanced knowledge related to diagnosis and treatment plan
Goal: Understand your diagnosis and treatment plan needs, including medications if applicable.
Instructions: Know your diagnosis, underlying causes and treatment plan options, including medications if applicable. Consult with your health care team to learn about your diagnosis and treatment plan, including medications if applicable.
Discharge Date and Time
Print Language: BULGARIAN
[2024-06-28 11:25] VITALS: BP 106/71
--- NOTE | 2024-06-28 11:49 | PTCARENOTE ---
pt showered, VSS, IV line removed. discharge instructions, medication list/changes and follow up appointments reviewed w the pt and questions encouraged.
== END 2024-06-28 13:07 | disposition home or self-care (01) | DRG 236 ==
LOC: CVICU 07:22
PROVIDERS: Anesthesiology; Clinical Nurse Specialist Acute Care; Nurse Practitioner; Radiology Diagnostic Radiology; ADMITTING PHYSICIAN Thoracic Surgery (Cardiothoracic Vascular Surgery); CONSULT PHYSICIAN Internal Medicine Critical Care Medicine; OTHER PHYSICIAN Internal Medicine Cardiovascular Disease
PROC: B24BZZ4 Ultrasonography of Heart with Aorta, Transesophageal (ICD-10-PCS; 2024-06-23)
PROC: 5A1221Z Performance of Cardiac Output, Continuous (ICD-10-PCS; 2024-06-23)
PROC: 06BP4ZZ Excision of Right Saphenous Vein, Percutaneous Endoscopic Approach (ICD-10-PCS; 2024-06-23)
PROC: 02L70CK Occlusion of Left Atrial Appendage with Extraluminal Device, Open Approach (ICD-10-PCS; 2024-06-23)
PROC: 30233R1 Transfusion of Nonautologous Platelets into Peripheral Vein, Percutaneous Approach (ICD-10-PCS; 2024-06-23)
PROC: 06BQ4ZZ Excision of Left Saphenous Vein, Percutaneous Endoscopic Approach (ICD-10-PCS; 2024-06-23)
PROC: 02100Z9 Bypass Coronary Artery, One Artery from Left Internal Mammary, Open Approach (ICD-10-PCS; 2024-06-23)
PROC: 021209W Bypass Coronary Artery, Three Arteries from Aorta with Autologous Venous Tissue, Open Approach (ICD-10-PCS; 2024-06-23)
PROC: 0W9930Z Drainage of Right Pleural Cavity with Drainage Device, Percutaneous Approach (ICD-10-PCS; 2024-06-26)
DX: I21.4 Non-ST elevation (NSTEMI) myocardial infarction (principal); D62 Acute posthemorrhagic anemia; J95.811 Postprocedural pneumothorax; J98.11 Atelectasis; J90 Pleural effusion, not elsewhere classified; R11.0 Nausea; I48.0 Paroxysmal atrial fibrillation; E86.1 Hypovolemia; E87.70 Fluid overload, unspecified; I25.110 Atherosclerotic heart disease of native coronary artery with unstable angina pectoris; E78.5 Hyperlipidemia, unspecified; R00.1 Bradycardia, unspecified; I95.9 Hypotension, unspecified; I45.10 Unspecified right bundle-branch block; G89.29 Other chronic pain; I34.0 Nonrheumatic mitral (valve) insufficiency; M54.9 Dorsalgia, unspecified; M54.2 Cervicalgia; Y83.8 Other surgical procedures as the cause of abnormal reaction of the patient, or of later complication, without mention of misadventure at the time of the procedure; Z87.81 Personal history of (healed) traumatic fracture; Z79.82 Long term (current) use of aspirin; Z79.02 Long term (current) use of antithrombotics/antiplatelets; Z82.49 Family history of ischemic heart disease and other diseases of the circulatory system
CPT/HCPCS: 32557; 36415; 71045; 71046; 74018; 80048; 80053; 81003; 82248; 82330; 82565; 82805; 82947; 82962; 83036; 83735; 84132; 84302; 84520; 85014; 85018; 85025; 85027; 85049; 85610; 85730; 86803; 86850; 86900; 86901; 86920; 87070; 93005; 93312; 93320; 93325; 93880; 94002; 99152; J2916; P9073